=== PATIENT | male | born 1960 | race Caucasian/White ===

== ENCOUNTER 2018-06-13 15:25 | Inpatient (IN) | payer OTHER ==
[~2018-06-13] VITALS: Ht 177.8 cm; Wt 94.3 kg
--- NOTE | 2018-06-13 15:25 | NUR ---
PT BIBA TO ER BED 02
[2018-06-13 15:40] VITALS: BP 146/96
[2018-06-13] MEDS ORDERED: methylPREDNISolone SS 125 MG/2 ML VIAL IVP ONE (15:45)
[2018-06-13] MEDS ORDERED: IPRATROPIUM 0.02% 0.5 MG/2.5 ML NEBU INH ONE (15:45)
[2018-06-13] MEDS ORDERED: LEVOFLOXACIN 500 MG/D5W PREMIX 100 ML IV ONE (15:45)
[2018-06-13] MEDS ORDERED: ALBUTEROL 0.083% 2.5 MG/3 ML NEBU INH ONE (15:45)
--- NOTE | 2018-06-13 15:45 | NUR ---
PT BIB[facility] FOR DIFFUSE ABD PAIN AND FLU LIKE SYMPTOMS X 1 MONTH. PT C/O N/V, "I FEEL HOT", DENIES DYSURIA AND PRIOR FEVERS. PT REPORTS HE HAD COMPLETED DIALYSIS WITH 2 LITER REMOVAL, DENIES SOB, HOWEVER ONLY 88% ON ROOM AIR. RESP EVEN AND UNLABORED, LS-DIMISHED MARGARITA. ABD SOFT, TENDER TO PALPATION. REPORTS NORMAL BM LAST NIGHT. DENIES SOB OR CP. MED HX: HTN, COPD,KIDNEY DISEASE, DM. RX: INSULIN,METFORMIN,LISINOPRIL
--- NOTE | 2018-06-13 15:50 | NUR ---
PT REFUSED ABG AND DR. GARCIA NOTIFIED
--- NOTE | 2018-06-13 16:00 | NUR ---
RT AT BEDSIDE FOR TX, REFUSES ABG'S
[2018-06-13 16:11] LABS: BASOPHILS % (AUTO) 0.9 % (0.0-2.0); HEMATOCRIT 28.8 % (36-52); HEMOGLOBIN 9.3 g/dL (12.0-18.0); LYMPHOCYTES # (AUTO) 0.6 K/uL (2.0-11.5); LYMPHOCYTES % (AUTO) 10.8 % (20.5-51.1); MEAN CORPUSCULAR HEMOGLOBIN 30 pg (27-31); MEAN CORPUSCULAR HGB CONC 32 g/dL (33-37); MEAN CORPUSCULAR VOLUME 94.7 fL (80-94); MONOCYTES # (AUTO) 0.5 K/uL (0.8-1.0); NEUTROPHILS # (AUTO) 4.3 K/uL (1.8-7.7); NEUTROPHILS % (AUTO) 78.3 % (42.2-75.2); PLATELET COUNT (AUTO) 139 K/uL (140-450); RED BLOOD CELL COUNT(AUTO) 3.04 MIL/uL (4.20-6.10); RED CELL DISTRIBUTION WIDTH 20.5 % (11.6-13.7); WHITE BLOOD COUNT (AUTO) 5.5 K/uL (4.8-10.8)
[2018-06-13 16:43] LABS: ALBUMIN 3.6 g/dL (3.4-5.0); ANION GAP 8.1 (8-16); CARBON DIOXIDE 33.3 mmol/L (21-32); POTASSIUM 5.4 mmol/L (3.5-5.1); TOTAL BILIRUBIN 0.4 mg/dL (0.0-1.0)
--- NOTE | 2018-06-13 16:49 | NUR ---
PT OFFERED FLUIDS AND BLANKET, REQUESTING LIGHTS TO BE TURNED OFF
[2018-06-13 16:51] LABS: CREATININE 6.5 mg/dL (0.7-1.3)
[2018-06-13] MEDS ORDERED: SODIUM POLYSTYRENE 15 GM/60 ML UDBTL PO ONE (16:55)
[2018-06-13] MEDS ORDERED: NITROGLYCERIN 2% 1 GM PKT TP ONE (17:05)
[2018-06-13] MEDS ORDERED: FUROSEMIDE 20 MG/2 ML VIAL IVP ONE (17:05)
[2018-06-13] MEDS ORDERED: ASPIRIN 81 MG TAB.CHEW ONE ×2 (17:16→17:28)
[2018-06-13] MEDS ORDERED: ASPIRIN 325 MG TAB ONE (17:23)
--- NOTE | 2018-06-13 17:46 | NUR ---
ADMITTING ORDERS RECEIVED. PT INFORMED PLAN OF CARE.
--- NOTE | 2018-06-13 18:30 | NUR ---
RECEIVED REPORT FROM ED NURSE. PT IN STABLE CONDITION. PT IS AMBULATORY. SKIN IS INTACT. ON DIALYSIS [id number]. 2L REMOVED VIA HD EARLIER TODAY. SHUNT ON LEFT ARM. SATURATING AT 92% ON 2L NC. NO SOB. NO COMPLAINTS OF PAIN OR DISCOMFORT. PT VOICING MD PIYUSH TO PUT IN DIET ORDERS. NITRO PATCH ON RIGHT UPPER CHEST. IV SITE PATENT AND ASYMPTOMATIC. PT IS NOT VERY COOPERATIVE AT THIS TIME. ALL SAFETY PRECAUTIONS IN PLACE, WILL CONTINUE TO MONITOR. Addendum: 06/13/18 at 1853 by Pati Mendoza Meng, RN PT REFUSING REPEAT OF BLOOD PRESSURE READING ON OTHER ARM.
--- NOTE | 2018-06-13 18:49 | NUR ---
Patient will be admitted to care of DR VILLEGAS, DR VANG. Admited toTELE. Will go to room. Belongings list completed. Report to .
--- NOTE | 2018-06-13 19:26 | NUR ---
ENDORSED PLAN OF CARE TO PARTS PROCESSOR RN. PT IN STABLE CONDITION BUT UNCOOPERATIVE.
[2018-06-13 19:27] VITALS: BP 166/108
--- NOTE | 2018-06-13 19:27 | NUR ---
RECEIVED PT REPORT FROM AM NURSE . PT NEW ADMIT FROM ER. TELE PT . AWAKE,ALERT AND ORIENTED X4. WITH SKIN INTACT . ON O22L/NC. NO SOB NOTED. HAS OCCASIONAL PRODUCTIVE COUGH. LUNG SOUNDS DIMINISHED. WITH HL ON THE RT AC#20. CLEAR AND PATENT. PT IN ON HD, WITH ACCESS ON THE LT LOWER ARM AV SHUNT. DRESSING CLEAN AND DRY. PT SAID HE IS HUNGRY. NO DIET ORDER,AND ADMIT ORDERS NOTED WILL CALL MD FOR ORDERS. BED PLACED ON LOWEST POSITION. CALL LIGHT AND URINAL WITHIN EASY REACH. ORIENTED TO HOSPITAL ROUTINES. INSTRUCTED TO CALL FOR ANY ASSISTANCE . VERBALIZED UNDERSTANDING. WILL CONTINUE TO MONITOR.
[2018-06-13] MEDS ORDERED: INSULIN LISPRO SLIDING SCALE 100 UNITS/ML VIAL SUBQ PRN (20:30)
[2018-06-13] MEDS ORDERED: DEXTROSE 50% 50 ML SYR IVP PRN (20:30)
[2018-06-13] MEDS ORDERED: LABETALOL 100 MG/20 ML VIAL IV PRN ×2 (20:30→22:00)
--- NOTE | 2018-06-13 20:30 | NUR ---
PAGED DR. VANG FOR ADMIT ORDERS,DR MOSQUERA SCHOOL AGE LEAD TEACHER. CALLED BACK AND MADE AWARE OF PT BEING IN THE UNIT. WITH ORDERS MADE AND READ BACK.
--- NOTE | 2018-06-13 21:00 | NUR ---
BOTH MRSA NARES AND URINE SPECIMEN COLLECTED FROM PT . SPECIMEN SEND TO LAB.
[2018-06-13] MEDS: BLOOD GLUCOSE MONITORING 1 DEV DEV FS SCH (21:14)
--- NOTE | 2018-06-13 21:14 | NUR ---
BLOOD SUGAR WAS CHECKED RESULT 118. NO INSULIN NEEDED. PROVIDED SOME SANDWICH AND JUICE. WILL CONTINUE TO MONITOR.
[2018-06-13] MEDS ORDERED: LABETALOL 100 MG/20 ML VIAL ONE (21:46)
--- NOTE | 2018-06-13 21:50 | NUR ---
PAGED AGAIN DR. MOSQUERA . CALLED BACK . CLARIFIED WITH HIM ABOUT LABETALOL ORDER DOSAGE PER PROTOCOL FOR TELEMETRY UNIT DOSE. CHANGED DOSE TO 10 MG IVP Q4HRS PRN FOR SBP GREATER 160AND HR GREATER /EQUAL 90. AND NEW ORDER OF AMLODIPINE.
--- NOTE | 2018-06-13 22:25 | NUR ---
BLOOD PRESSURE STILL ELEVATED BP 166/108 ,HR-89. AMLODIPINE 10 MG PO ONCE ORDERED GIVEN. WILL CONTINUE TO MONITOR.
[2018-06-13] MEDS ORDERED: amLODIPine 5 MG TAB PO SCH (22:30)
[2018-06-13 22:39] LABS: APPEARANCE,URINE CLEAR (CLEAR); BILIRUBIN,URINE NEGATIVE (NEGATIVE); BLOOD, URINE 2+ (NEGATIVE); COLOR,URINE YELLOW (YELLOW); LEUKOCYTE ESTERASE ,URINE NEGATIVE (NEGATIVE); NITRITE, URINE NEGATIVE (NEGATIVE); PH,URINE >=9.0 (5.0-9.0); UGLUCOSE NEGATIVE (NEGATIVE)
[2018-06-13 22:50] LABS: RBC,URINE 0-5 (RARE) /HPF (0-5)
[2018-06-13] MEDS ORDERED: guaiFENesin DM 200/20 MG-10 ML 10 ML UDC PO PRN (23:35)
[2018-06-14] VITALS (7 sets, daily range): BP systolic 127–166; BP diastolic 76–115
[2018-06-14] MEDS ORDERED: ALBUTEROL 0.083% 2.5 MG/3 ML NEBU INH PRN (00:20)
--- NOTE | 2018-06-14 01:06 | NUR ---
BP REMAINS ELEVATED AT 166/107. LABETALOL 10MG IV ADMINISTERED. PT IS AWAKE & VERBALLY RESPONSIVE, DENIES ANY DISCOMFORT AT THIS TIME. CALL LIGHT WITHIN REACH. WILL CONTINUE TO MONITOR.
--- NOTE | 2018-06-14 01:33 | NUR ---
C/O ABDOMINAL PAIN 04/21. PAGED DR. MOSQUERA .CALLED BACK WITH ORDERS.
[2018-06-14] MEDS: MORPHINE SULFATE 2 MG/ML SYR IVP PRN ×4 (01:44→23:02)
[2018-06-14] MEDS ORDERED: MORPHINE SULFATE 2 MG/ML SYR ONE (01:47)
--- NOTE | 2018-06-14 02:30 | NUR ---
BP REMAINS ELEVATED AT 165/115, P 83. DR. MOSQUERA (ON-CALL FOR DR. VANG) PAGED & AWAITING CALL BACK. PT IS ALERT & VERBALLY RESPONSIVE. WILL CONTINUE TO MONITOR.
[2018-06-14] MEDS: ZOLPIDEM 5 MG TAB PO PRN (02:41)
--- NOTE | 2018-06-14 02:55 | NUR ---
DR. MOSQUERA CALLED BACK & NOTIFIED OF PERSISTENT HYPERTENSION. MD ORDERED CLONIDINE 0.1MG PO Q4H PRN FOR SBP>160 OR DBP>90. ORDER NOTED & CARRIED OUT. PT NOTIFIED & VERBALIZED UNDERSTANDING.
[2018-06-14] MEDS: cloNIDine 0.1 MG TAB PO PRN ×2 (03:36→12:12)
--- NOTE | 2018-06-14 04:00 | NUR ---
REASSESSED VITAL SIGNS. PT RESTING COMFORTABLY, DENIES ANY PAIN. PT DROWSY D/T AMBIEN. NO SIGNS OF DISTRESS. RESPIRATIONS EVEN & UNLABORED. CALL LIGHT PLACED WITHIN REACH. WILL CONTINUE TO MONITOR.
--- NOTE | 2018-06-14 05:06 | NUR ---
BP REASSESSED. PT IS SLEEPING COMFORTABLY IN BED, AROUSABLE BY VOICE. DENIES ANY DISCOMFORT. NO SIGNS OF DISTRESS. RESPIRATIONS EVEN & UNLABORED. CALL LIGHT WITHIN REACH. WILL CONTINUE TO MONITOR.
[2018-06-14] MEDS: BLOOD GLUCOSE MONITORING 1 DEV DEV FS SCH ×4 (06:45→20:56)
--- NOTE | 2018-06-14 07:12 | NUR ---
PATIENT REFUSED HHN TX OF ALBUTEROL. HR 95 RR 20 SPO2 94 ON 2L/M NASAL CANNULA.
--- NOTE | 2018-06-14 07:25 | NUR ---
REPORT GIVEN TO AM SHIFT NURSE FOR CONTINUITY OF CARE. PT LYING AWAKE IN BED, NO SIGNS OF DISTRESS, RESPIRATIONS EVEN & UNLABORED.
[2018-06-14] MEDS: ALBUTEROL 0.083% 2.5 MG/3 ML NEBU INH SCH ×4 (08:00→19:32)
[2018-06-14] MEDS ORDERED: ASPIRIN 325 MG TABEC PO SCH (09:00)
--- NOTE | 2018-06-14 10:00 | NUR ---
CALLED [facility] [phone] AND SPOKE WITH PIYUSH ADAMS RN READ ALL THE HOME MEDS FROM THE CONTAINER AND NOTIFIED DR VANG AND REVIEWED BY DR VANG AND ILEANA THORNTON TO CONTINUE ALL HOME MEDS
--- NOTE | 2018-06-14 10:00 | NUR ---
Patient signed consent for CT angio, and taken by technition via bed with 40% 02 mask on. Waylon Arshad RN Addendum: 06/14/18 at 2018 by Agency 05 TRI BARTLETT Please disregard information, wrong patient. Waylon Arshad RN
[2018-06-14] MEDS: amLODIPine 5 MG TAB PO SCH (10:06)
[2018-06-14] MEDS ORDERED: GABA300C PO (10:49)
[2018-06-14] MEDS ORDERED: CALC0.5S6 PO (10:49)
[2018-06-14] MEDS ORDERED: TAMS0.4C96 PO (10:49)
[2018-06-14] MEDS ORDERED: [UNRECOGNIZED DRUG - CODE] PO (10:49)
[2018-06-14] MEDS ORDERED: PANT40EC PO (10:49)
[2018-06-14] MEDS ORDERED: VIT1TABL47 PO (10:49)
[2018-06-14] MEDS ORDERED: LIP80 PO (10:49)
[2018-06-14] MEDS ORDERED: ASPI81EC98 PO (10:49)
[2018-06-14] MEDS ORDERED: SEVE800T6 PO (10:49)
[2018-06-14] MEDS ORDERED: DIVA500T1 PO (10:49)
[2018-06-14] MEDS ORDERED: METO50TA99 PO (10:49)
[2018-06-14] MEDS ORDERED: TRAZ100T99 PO (10:49)
[2018-06-14] MEDS ORDERED: LISI-420 PO (10:49)
--- NOTE | 2018-06-14 11:05 | NUR ---
PATIENT SLEEPING AND REFUSED HHN TX. STILL HAS NASAL CANNULA ON AT 3L/M. SPO2 99 HR 92.
--- NOTE | 2018-06-14 12:00 | NUR ---
Patient BS 154, and refused insulin this afternoon, saying she does not take insulin at the alf, and would rather not have her fingersticks done. Waylon Arshad RN Addendum: 06/14/18 at 2020 by Agency 05 TRI RN Disregard above information, patient BS 86, and no insulin necessary. Patient did have a quarter piece of orange, and did eat all of his lunch.' He received morphine earlier, and his pain did resolve. Waylon Arshad RN
[2018-06-14] MEDS ORDERED: DICYCLOMINE HCL 20 MG PO SCH (13:00)
[2018-06-14] MEDS ORDERED: DICYCLOMINE 10 MG CAP PO SCH (13:13)
[2018-06-14 13:44] LABS: BASOPHILS % (AUTO) 0.6 % (0.0-2.0); EOSINOPHILS % (AUTO) 0.2 % (0.0-4.0); HEMATOCRIT 27.9 % (36-52); HEMOGLOBIN 8.8 g/dL (12.0-18.0); LYMPHOCYTES # (AUTO) 0.6 K/uL (2.0-11.5); MEAN CORPUSCULAR HEMOGLOBIN 30 pg (27-31); MEAN CORPUSCULAR HGB CONC 32 g/dL (33-37); MEAN CORPUSCULAR VOLUME 95.5 fL (80-94); MONOCYTES # (AUTO) 0.5 K/uL (0.8-1.0); NEUTROPHILS # (AUTO) 4.3 K/uL (1.8-7.7); PLATELET COUNT (AUTO) 127 K/uL (140-450); RED BLOOD CELL COUNT(AUTO) 2.92 MIL/uL (4.20-6.10); RED CELL DISTRIBUTION WIDTH 20.9 % (11.6-13.7); WHITE BLOOD COUNT (AUTO) 5.5 K/uL (4.8-10.8)
[2018-06-14 13:52] LABS: ANION GAP 14.2 (8-16); CARBON DIOXIDE 29.8 mmol/L (21-32)
[2018-06-14 13:56] LABS: LYMPHOCYTES % (AUTO) 11.5 % (20.5-51.1); MONOCYTES % (AUTO) 9.3 % (1.7-9.3); NEUTROPHILS % (AUTO) 78.4 % (42.2-75.2)
[2018-06-14 14:13] LABS: CREATINE KINASE MB 9.4 ng/mL (0-3.6)
[2018-06-14 14:18] LABS: CREATININE 8.8 mg/dL (0.7-1.3)
--- NOTE | 2018-06-14 14:30 | NUR ---
Patient refused lunch tray passed to her, and nilda have a late chicken noodle soup, and two hard boiled eggs sent up from dietary. She had 90% of food received. Waylon Arshad RN
--- NOTE | 2018-06-14 15:48 | NUR ---
PATIENT AWAKE RECEIVING DIALYSIS AT BEDSIDE. REFUSED HHN TREATMENT SAID THAT HE DOES NOT WANT IT. SAID THAT HE IS NOT HAVING ANY PROBLEMS WITH RESPIRATION. SPO2 97 ON 3L/M HR 69. DECREASED TO 2L/M AND SPO2 MAINTAINED AT 96.
[2018-06-14] MEDS: DICYCLOMINE 10 MG CAP PO SCH ×2 (17:00→20:56)
--- NOTE | 2018-06-14 17:30 | NUR ---
Patient hemodialysis completed, and patient had 2600 off, and vss, and sbp < 130. Waylon Arshad RN
--- NOTE | 2018-06-14 18:00 | NUR ---
Patient BS 151, and she refused insulin again this evening. She received her coumadin 2 mg PO + her glipizide 5 mg PO. Waylon Arshad RN Addendum: 06/14/18 at 2021 by Agency 05 TRI RN Please disregard above note. Patient BS at 1800 was 86, and no insulin necessary per sliding scale per do. Patient did receive morphine 1 mg IVP for co pain across his mid abd, on scale 1-10 = 7. Waylon Arshad RN
[2018-06-14] MEDS: SEVELAMER CARBONATE 800 MG TAB PO SCH (19:10)
--- NOTE | 2018-06-14 19:30 | NUR ---
RECEIVED REPORT FROM AM SHIFT NURSE. PT SITTING UP IN BED, ALERT & AWAKE. NO SIGNS OF DISTRESS. FALL PRECAUTIONS IN PLACE. CALL LIGHT WITHIN REACH. WILL CONTINUE TO MONITOR.
--- NOTE | 2018-06-14 20:55 | NUR ---
DUE MEDS GIVEN AT THIS TIME. PT SITTING UP IN BED, WATCHING TV. NO SIGNS OF DISTRESS. CALL LIGHT WITHIN REACH. FALL PRECAUTIONS IN PLACE. WILL CONTINUE TO MONITOR.
[2018-06-14] MEDS: traZODone 50 MG TAB PO SCH (20:56)
[2018-06-14] MEDS: DIVALPROEX 500 MG TABER PO SCH (20:57)
[2018-06-14] MEDS ORDERED: NON-FORMULARY ITEM (Trazodone HCl 100 MG) PO SCH (21:00)
--- NOTE | 2018-06-14 23:02 | NUR ---
MORPHINE ADMINISTERED FOR C/O PAIN. PT LYING COMFORTABLY IN BED, ALERT & AWAKE, ABLE TO VERBALIZED NEEDS. NO SIGNS OF DISTRESS. CALL LIGHT WITHIN REACH. INSTRUCTED PT TO USE CALL BUTTON IF BRP NEEDED. PT VERBALIZED AGREEMENT. FALL PRECAUTIONS IN PLACE.
[2018-06-15] VITALS: BP 127/91
--- NOTE | 2018-06-15 00:02 | NUR ---
PAIN REASSESSMENT COMPLETED. PT LYING COMFORTABLY IN BED, NO SIGNS OF DISTRESS, RESPIRATIONS EVEN & UNLABORED. CALL LIGHT WITHIN REACH. WILL CONTINUE TO MONITOR.
[2018-06-15] MEDS: ZOLPIDEM 5 MG TAB PO PRN (02:55)
--- NOTE | 2018-06-15 02:55 | NUR ---
PT REQUESTING FOR SLEEPING PILL. EXPLAINED TO PT THAT IT IS NOW EARLY AM, HE MAY STAY ASLEEP & MISS BREAKFAST IF MED IS GIVEN NOW. PT INSIST ON TAKING THE MED. AMBIEN ADMINISTERED AT THIS TIME. PT DENIES ANY PAIN, NO SIGNS OF DISTRESS. CALL LIGHT WITHIN REACH, FALL PRECAUTIONS IN PLACE.
[2018-06-15 04:02] VITALS: BP 131/92
--- NOTE | 2018-06-15 04:45 | NUR ---
PT SLEEPING COMFORTABLY, RESPIRATIONS EVEN & UNLABORED. FALL PRECAUTIONS IN PLACE. CALL LIGHT WITHIN REACH.
[2018-06-15] MEDS: MORPHINE SULFATE 2 MG/ML SYR IVP PRN ×2 (05:23→11:17)
[2018-06-15] MEDS: BLOOD GLUCOSE MONITORING 1 DEV DEV FS SCH ×4 (06:25→20:34)
--- NOTE | 2018-06-15 07:15 | NUR ---
REPORT GIVEN TO AM SHIFT NURSE FOR CONTINUITY OF CARE. PT SITTING ON BED, ALERT & VERBALLY RESPONSIVE. NO SIGNS OF DISTRESS.
--- NOTE | 2018-06-15 07:16 | NUR ---
RECEIVED BEDSIDE REPORT FROM STUDENT LIAISON OFFICER NURSE. PATIENT IS AWAKE, ALERT AND ORIENTEDX4. NO SIGNS OF DISTRESS ON 2L NC. PATIENT IS SITTING ON BED STATING HES HUNGRY AND I TOLD HIM BREAKFAST IS COMING SOON. HE VERBALIZED UNDERSTANDING. HE IS AMBULATORY. SKIN IS INTACT. TELE MONITOR IN PLACE. L FA AV SHUNT. NO B/P OR VENIPUNCTURE ON L ARM SIGNS ARE POSTED. HE HAD DIALYSIS YESTERDAY W 2400 OUT. R AC 20 IS SALINE LOCKED, CLEAN, DRY AND INTACT. FLUID RESTRICTIONS ON 1500ML/HR, SIGNS ARE POSTED. PER STUDENT LIAISON OFFICER HE IS NON COMPLAINT W FLUID RESTRICTIONS. PATIENT EDUCATED THE IMPORTANCE AND VERBALIZED UNDERSTANDING, PATIENT STILL NON COMPLIANT. BED IN LOW POSITION. CALL LIGHT WITHIN REACH. WILL CONTINUE TO MONITOR
[2018-06-15 08:00] VITALS: BP 136/92
[2018-06-15] MEDS ORDERED: NON-FORMULARY ITEM (Aspirin (Aspir 81) 81 MG) PO SCH (08:00)
[2018-06-15] MEDS: ALBUTEROL 0.083% 2.5 MG/3 ML NEBU INH SCH ×4 (08:00→19:34)
[2018-06-15] MEDS: METOPROLOL 50 MG TAB PO SCH (08:33)
[2018-06-15] MEDS: SEVELAMER CARBONATE 800 MG TAB PO SCH ×3 (08:34→16:26)
[2018-06-15] MEDS: amLODIPine 5 MG TAB PO SCH (08:34)
[2018-06-15] MEDS: TAMSULOSIN 0.4 MG CAP PO SCH (08:34)
[2018-06-15] MEDS: ECOTRIN 81 MG TABEC PO SCH (08:34)
[2018-06-15] MEDS: ATORVASTATIN 80 MG TAB PO SCH (08:34)
[2018-06-15] MEDS: CALCITRIOL 0.25 MCG CAPLF PO SCH (08:34)
[2018-06-15] MEDS: LISINOPRIL 20 MG TAB PO SCH (08:35)
[2018-06-15] MEDS: PANTOPRAZOLE 40 MG TABEC PO SCH (08:35)
[2018-06-15] MEDS: VIT-B COMP/VIT-C/FOLIC ACID 1 TAB PO SCH (08:35)
[2018-06-15] MEDS: DICYCLOMINE 10 MG CAP PO SCH ×4 (08:38→20:33)
[2018-06-15] MEDS: DIVALPROEX 500 MG TABER PO SCH ×2 (08:38→20:33)
[2018-06-15] MEDS: GABAPENTIN 300 MG CAP PO SCH (08:38)
--- NOTE | 2018-06-15 08:51 | NUR ---
ADMINISTERED MEDS. PATIENT TOLERATED WELL. PATIENT PLACED ON FALL RISK PROTOCOL HE REFUSED YELLOW SOCKS. EDUCATED HIM ON THE IMPORTANCE AND HE STILL REFUSED. BED IN LOW POSITION. CALL LIGHT WITHIN REACH, EXTRA WARM BLANKET GIVEN. WILL CONTINUE TO MONITOR
[2018-06-15] MEDS ORDERED: VIT B CMPLX PO SCH (09:00)
[2018-06-15] MEDS ORDERED: CLINICAL MONITORING MC PRN (09:00)
[2018-06-15] MEDS ORDERED: BIOTIN PO SCH (09:00)
[2018-06-15] MEDS ORDERED: CLINICAL MONITORING MC SCH (09:00)
[2018-06-15] MEDS ORDERED: METOPROLOL TARTRATE 50 MG PO SCH (09:00)
[2018-06-15] MEDS ORDERED: [UNRECOGNIZED DRUG - OTHER] PO SCH (09:00)
--- NOTE | 2018-06-15 09:00 | NUR ---
PATIENT REFUSED RT TREATMENT. HE SAID HE IS OK RIGHT NOW. PATIENT JUST WANTS TO SLEEP
--- NOTE | 2018-06-15 09:00 | NUR ---
PATIENT ASSESSMENT COMPLETED LOC ASLEEP EASILY AWAKENS WHEN NAME CALLED PATIENT REFUSES HHN THERAPY AND RESPIRATORY DRUG AT THIS TIME PATIENT STATES "NOT RIGHT NOW WILL TAKE IT NEXT TIME (1100)" NO SOB NOTED
--- NOTE | 2018-06-15 11:05 | NUR ---
PATIENT HAS BEEN SCREENED AND CATEGORIZED MODERATE NUTRITION RISK. PATIENT WILL BE SEEN WITHIN 3-5 DAYS OF ADMISSION. 06/16/18 06/18/18 BUDDY BEDOYA MBA, RD
--- NOTE | 2018-06-15 11:20 | NUR ---
ADMINISTERED PRN PAIN MEDS. PATIENT TOLERATED WELL. IV IS CLEAN, DRY AND INTACT. NO SIGNS OF DISTRESS. ECHO ABOUT TO START FOR THE PATIENT, TECH AT BEDSIDE. WILL CONTINUE TO MONITOR
[2018-06-15 12:00] VITALS: BP 116/81
--- NOTE | 2018-06-15 12:37 | NUR ---
ADMINISTERED MEDS. PATIENT TOLERATED WELL. NO SIGNS OF DISTRESS. HE SAID HE DOES NOT EAT PORK AND HE GOT PORK, CALLED [facility] FOR A SUBSTITUTE AND LEFT A MESSAGE. WILL CONTINUE TO MONITOR THE PATIENT.
--- NOTE | 2018-06-15 13:28 | NUR ---
PATIENT IN BED EATING A TURKEY SANDWICH. NO SIGNS OF DISTRESS. WILL CONTINUE TO MONITOR THE PATIENT
--- NOTE | 2018-06-15 14:39 | NUR ---
PATIENT IS SLEEPING. NO SIGNS OF DISTRESS ON 2L NC. BED IN LOW POSITION. CALL LIGHT WITHIN REACH. WILL CONTINUE TO MONITOR
[2018-06-15 16:00] VITALS: BP 96/63
[2018-06-15] MEDS ORDERED: LEVOFLOXACIN 500 MG/D5W PREMIX 100 ML IV SCH (16:00)
[2018-06-15] MEDS ORDERED: LEVOFLOXACIN 500 MG TAB PO SCH (16:00)
--- NOTE | 2018-06-15 16:25 | NUR ---
SATURATION 88% ON SUPPLEMENTAL OXYGEN AT 2 LPM VIA NC POST HHN THERAPY INCREASED FIO2 TO 3 LPM LUIS/RN AT BEDSIDE AND AWARE
--- NOTE | 2018-06-15 16:37 | NUR ---
ADMINISTERED MEDS. PATIENT TOLERATED WELL. BED IN LOW POSITION. CALL LIGHT WITHIN REACH. PATIENT UP TO 3L NC NOW. WILL CONTINUE TO MONITOR
[2018-06-15 17:04] LABS: BASOPHILS # (AUTO) 0.1 K/uL (0.00-0.22); BASOPHILS % (AUTO) 2.2 % (0.0-2.0); EOSINOPHILS # (AUTO) 0.4 K/uL (0-0.4); EOSINOPHILS % (AUTO) 7.4 % (0.0-4.0); HEMATOCRIT 29.9 % (36-52); HEMOGLOBIN 9.5 g/dL (12.0-18.0); LYMPHOCYTES # (AUTO) 1.2 K/uL (2.0-11.5); MEAN CORPUSCULAR HEMOGLOBIN 31 pg (27-31); MEAN CORPUSCULAR HGB CONC 32 g/dL (33-37); MEAN CORPUSCULAR VOLUME 96.5 fL (80-94); MONOCYTES # (AUTO) 0.6 K/uL (0.8-1.0); MONOCYTES % (AUTO) 12.1 % (1.7-9.3); NEUTROPHILS # (AUTO) 2.8 K/uL (1.8-7.7); NEUTROPHILS % (AUTO) 55.3 % (42.2-75.2); PLATELET COUNT (AUTO) 136 K/uL (140-450); WHITE BLOOD COUNT (AUTO) 5.1 K/uL (4.8-10.8)
[2018-06-15 17:46] LABS: CARBON DIOXIDE 29.6 mmol/L (21-32)
[2018-06-15 17:51] LABS: ANION GAP 11.8 (8-16); CREATININE 7.9 mg/dL (0.7-1.3); POTASSIUM 5.4 mmol/L (3.5-5.1)
[2018-06-15 17:53] LABS: PHOSPHORUS 4.9 mg/dL (2.5-4.9)
--- NOTE | 2018-06-15 18:11 | NUR ---
PATIENT IS EATING. NO SIGNS OF DISTRESS. WILL CONTINUE TO MONITOR THE PATIENT
--- NOTE | 2018-06-15 19:05 | NUR ---
GAVE BEDSIDE REPORT TO POSTER NURSE. PATIENT ENDORSED IN STABLE CONDITION. DIALYSIS NURSE AT BEDSIDE GOING TO START DIALYSIS
--- NOTE | 2018-06-15 19:10 | NUR ---
RECEIVED PATIENT ON BED HAVING DIALYSIS. DIALYSIS NURSE AT BEDSIDE. FALL PRECAUTION APPLIED. DISCUSS PLAN OF CARE AND VERBALIZED UNDERSTANDING. CALL LIGHT WITHIN REACH. WILL CONTINUE TO MONITOR.
--- NOTE | 2018-06-15 19:30 | NUR ---
PATIENT REFUSED HIS BREATHING TREATMENT. PT HAVING DIALYSIS. PT WILL CALL IF HE WANTS ONE
[2018-06-15] MEDS ORDERED: ONDANSETRON 4 MG/2 ML VIAL IVP PRN (19:55)
[2018-06-15 20:00] VITALS: BP 92/61
[2018-06-15] MEDS: traZODone 50 MG TAB PO SCH (20:33)
--- NOTE | 2018-06-15 21:05 | NUR ---
SCHEDULE MEDICATION GIVEN AND TOLERATED WELL. BS TAKEN AND RECORDED NO COVERAGE. ON GOING DIALYSIS PATIENT TOLERATED WELL. NO S/S OF DISTRESS NOTED. WILL CONTINUE TO MONITOR.
--- NOTE | 2018-06-15 21:45 | NUR ---
DIALYSIS DONE WITH 1600 OUTPUT PER DIALYSIS NURSE. NO S/S OF DISTRESS NOTED. WILL CONTINUE TO MONITOR.
[2018-06-16] VITALS: BP 100/76
--- NOTE | 2018-06-16 00:05 | NUR ---
V/S TAKEN AND RECORDED. NO S/S OF DISTRESS NOTED. ALL NEEDS ATTENDED. CALL LIGHT WITHIN REACH. WILL CONTINUE TO MONITOR.
--- NOTE | 2018-06-16 03:05 | NUR ---
SEEN PATIENT RESTING ON BED IN COMFORTABLE POSITION. FALL PRECAUTION APPLIED. NO S/S OF DISTRESS NOTED. CALL LIGHT WITHIN REACH. ALL NEEDS ATTENDED.
[2018-06-16 04:00] VITALS: BP 136/81
[2018-06-16] MEDS: BLOOD GLUCOSE MONITORING 1 DEV DEV FS SCH ×2 (06:33→12:23)
[2018-06-16] MEDS: ALBUTEROL 0.083% 2.5 MG/3 ML NEBU INH SCH ×2 (06:58→11:48)
--- NOTE | 2018-06-16 07:15 | NUR ---
ENDORSEMENT GIVEN TO AM SHIFT NURSE AT BEDSIDE FOR CONTINUITY OF CARE. PATIENT IN STABLE CONDITION.
--- NOTE | 2018-06-16 07:16 | NUR ---
RECEIVED BEDSIDE REPORT FROM CERAMIC PAINTER NURSE. PATIENT IS SLEEPING. NO SIGNS OF DISTRESS ON 3L NC. R AC 20G SALINE LOCK. CLEAN, DRY AND INTACT. NO B/P ON L ARM, SIGNS POSTED ARM BAND PRESENT. FLUID RESTRICTIONS, SIGN POSTED. AMBULATES W ASSISTANCE. SKIN IS INTACT. BED IN LOW POSITION. CALL LIGHT WITHIN REACH, WILL CONTINUE TO MONITOR. FALL RISK PROTOCOL IN PLACE
[2018-06-16 07:54] LABS: BASOPHILS # (AUTO) 0.1 K/uL (0.00-0.22); BASOPHILS % (AUTO) 1.1 % (0.0-2.0); EOSINOPHILS # (AUTO) 0.5 K/uL (0-0.4); EOSINOPHILS % (AUTO) 9.9 % (0.0-4.0); HEMATOCRIT 29.7 % (36-52); HEMOGLOBIN 9.6 g/dL (12.0-18.0); LYMPHOCYTES # (AUTO) 0.8 K/uL (2.0-11.5); LYMPHOCYTES % (AUTO) 16.2 % (20.5-51.1); MEAN CORPUSCULAR HEMOGLOBIN 31 pg (27-31); MEAN CORPUSCULAR HGB CONC 32 g/dL (33-37); MEAN CORPUSCULAR VOLUME 96.5 fL (80-94); MONOCYTES # (AUTO) 0.7 K/uL (0.8-1.0); MONOCYTES % (AUTO) 14.1 % (1.7-9.3); NEUTROPHILS # (AUTO) 3.1 K/uL (1.8-7.7); NEUTROPHILS % (AUTO) 58.7 % (42.2-75.2); PLATELET COUNT (AUTO) 152 K/uL (140-450); RED BLOOD CELL COUNT(AUTO) 3.07 MIL/uL (4.20-6.10); RED CELL DISTRIBUTION WIDTH 21.6 % (11.6-13.7); WHITE BLOOD COUNT (AUTO) 5.2 K/uL (4.8-10.8)
[2018-06-16 08:00] VITALS: BP 129/89
[2018-06-16 08:58] LABS: ANION GAP 14.6 (8-16); POTASSIUM 4.6 mmol/L (3.5-5.1)
[2018-06-16 09:01] LABS: CREATININE 6.2 mg/dL (0.7-1.3)
[2018-06-16] MEDS: CALCITRIOL 0.25 MCG CAPLF PO SCH (09:15)
[2018-06-16] MEDS: amLODIPine 5 MG TAB PO SCH (09:16)
[2018-06-16] MEDS: PANTOPRAZOLE 40 MG TABEC PO SCH (09:17)
[2018-06-16] MEDS: SEVELAMER CARBONATE 800 MG TAB PO SCH ×2 (09:17→12:35)
[2018-06-16] MEDS: DIVALPROEX 500 MG TABER PO SCH (09:18)
[2018-06-16] MEDS: LISINOPRIL 20 MG TAB PO SCH (09:18)
[2018-06-16] MEDS: ATORVASTATIN 80 MG TAB PO SCH (09:18)
[2018-06-16] MEDS: GABAPENTIN 300 MG CAP PO SCH (09:18)
[2018-06-16] MEDS: TAMSULOSIN 0.4 MG CAP PO SCH (09:19)
[2018-06-16] MEDS: METOPROLOL 50 MG TAB PO SCH (09:19)
[2018-06-16] MEDS: ECOTRIN 81 MG TABEC PO SCH (09:19)
[2018-06-16] MEDS: DICYCLOMINE 10 MG CAP PO SCH ×2 (09:20→12:35)
[2018-06-16] MEDS: VIT-B COMP/VIT-C/FOLIC ACID 1 TAB PO SCH (09:20)
--- NOTE | 2018-06-16 09:30 | NUR ---
ADMINISTERED MEDS. PATIENT TOLERATED WELL. BED IN LOW POSITION. CALL LIGHT WITHIN REACH. WILL CONTINUE TO MONITOR THE PATIENT
--- NOTE | 2018-06-16 10:36 | NUR ---
CALLED PT'S BOARD AND CARE ([phone]) AND SPOKE WITH MARGARET OLIVAS PT'S ROOMMATE REGARDING PT'S D/C BACK TO THE [facility]. MARGARET STATED THAT HE WILL LET THE EXECUTIVE CHEF (CHARLES) KNOW SOON SHE GETS THERE. GAVE [facility] CONTACT NUMBER TO CALL BACK. LUIS-RN ASSIGNED NOTIFIED TO MAKE A FOLLOW UP.
--- NOTE | 2018-06-16 11:00 | NUR ---
PATIENT IS SLEEPING. NO SIGNS OF DISTRESS. WILL CONTINUE TO MONITOR THE PATIENT.
[2018-06-16 12:00] VITALS: BP 103/73
--- NOTE | 2018-06-16 12:36 | NUR ---
ADMINISTERED MEDS. PATIENT TOLERATED WELL. EATING LUNCH AT THIS TIME. TOLD HIM I TRIED CALLING BOARD AND CARE AND NO ANSWER. HE SAID "THEY WONT ANSWER, THEY DONT CARE" WILL CONTINUE TO MONITOR THE PATIENT
--- NOTE | 2018-06-16 13:40 | NUR ---
SPOKE TO CHARLES THE COMPENSATION ADMINISTRATOR OF BOARD AND CARE. CALLED HER AT [phone]. SHE SAID SHE IS NOT ABLE TO [employer] MECHANICAL TECHNICIAN THE PATIENT. WILL CALL INSTALLATION AND SERVICE TECHNICIAN
--- NOTE | 2018-06-16 14:50 | NUR ---
CALLED CHARLES TEL#: [phone] (COUNTER INTELLIGENCE AGENT) OF PT'S ROOM AND BOARD AND CLARIFIED THEIR CORRECT ADDRESS. CHARLES STATED THAT PT IS ON 5 LITERS OF OXYGEN OVER AT THE ROOM AND BOARD. VALERIA NOTIFIED.
--- NOTE | 2018-06-16 15:00 | NUR ---
PATIENT IS DRESSING UP AND GETTING HIS THINGS TOGETHER FOR DISCHARGE. WILL WORK ON DISCHARGE PAPERWORK
--- NOTE | 2018-06-16 15:16 | NUR ---
CALLED CHARLES FROM [facility]OM [facility] BOARD AND VERIFIED ADDRESS. FAXED [facility] TRANSPORT REQUEST FORM TO [phone]. I INFORMED BRIAN THAT I WILL SET UP TRANSPORT WITH [facility]. PATIENT WILL NEED O2. SET UP TRANSPORT FOR 4P.M. W/C WITH O2 AT 3L. INFORMED LUIS BARTLETT.
--- NOTE | 2018-06-16 15:21 | NUR ---
DAVID Vines called, stated that pt will be picked up by [facility] (wheelchair) with 02 at 4pm today. Daphnie_TRI made aware.
--- NOTE | 2018-06-16 15:42 | NUR ---
FAXED INITIAL REVIEW ADMISSION CHART REVIEW DONE. FAXED ER REPORT, H&P, CONSULT AND PROGRESS NOTES TO [facility] [phone] PHONE MELISSA [phone]
--- NOTE | 2018-06-16 16:20 | NUR ---
EDUCATED PATIENT ON DISEASE, ABN S/SX, FOLLOW UP W DIALYSIS TOMORROW AND PCP 3-5 DAYS, EDUCATED ON MEDS AND GAVE PRESCRIPTIONS, REMOVED IV, IV TIP IS INTACT. ID BANDS ARE REMOVED. PATIENT SIGNED ALL PAPERWORK. WILL AWAIT [facility] TRANSPORT. PATIENT CURRENTLY EATING A [employer]
--- NOTE | 2018-06-16 16:35 | NUR ---
PATIENT LEFT IN STABLE CONDITION VIA WHEELCHAIR Cristina BUCK. CALLED CHARLES THE DRESSER TENDER OF BOARD AND CARE AND SHE SAID THAT THE DIALYSIS CENTER DOES TRANSPORT FOR HIM FOR DIALYSIS DAYS AND SHE SAID SHE WILL TALK TO THE RATE INSERTER ABOUT THE DIALYSIS DAYS.
== END 2018-06-16 16:35 | disposition home or self-care (01) | DRG 720 ==
LOC: MED 15:25 → MTU 17:56
PROVIDERS: ADMIT Internal Medicine; ATTEND Internal Medicine
PROC: 5A1D70Z Performance of Urinary Filtration, Intermittent, Less than 6 Hours Per Day (ICD-10-PCS; principal; 2018-06-14)
PROC: 5A1D70Z Performance of Urinary Filtration, Intermittent, Less than 6 Hours Per Day (ICD-10-PCS; 2018-06-14)
DX: A41.9 Sepsis, unspecified organism (principal); I21.A1 Myocardial infarction type 2; J96.00 Acute respiratory failure, unspecified whether with hypoxia or hypercapnia; I13.2 Hypertensive heart and chronic kidney disease with heart failure and with stage 5 chronic kidney disease, or end stage renal disease; J18.9 Pneumonia, unspecified organism; E11.22 Type 2 diabetes mellitus with diabetic chronic kidney disease; N18.6 End stage renal disease; I50.33 Acute on chronic diastolic (congestive) heart failure; E87.5 Hyperkalemia; J44.0 Chronic obstructive pulmonary disease with (acute) lower respiratory infection; J44.1 Chronic obstructive pulmonary disease with (acute) exacerbation; D63.1 Anemia in chronic kidney disease; Z99.2 Dependence on renal dialysis; Z87.891 Personal history of nicotine dependence; Z91.19 Patient's noncompliance with other medical treatment and regimen
CPT/HCPCS: 36415; 71045; 80048; 80053; 81001; 82550; 82553; 82948; 83605; 83880; 84100; 84484; 85025; 85610; 85730; 87040; 87081; 87086; 87205; 93005; 94640; 96374; 96375; 99291; J1815; J1940; J1956; J2270; J2405; J2930; J3490; J7613; J7644; Q0092

== ENCOUNTER 2018-09-15 10:12 | Inpatient (IN) | payer OTHER ==
[~2018-09-15] VITALS: Ht 177.8 cm; Wt 87.5 kg
[~2018-09-15 10:12] MED LIST: ASPI81EC98 PO; CALC0.5S6 PO; DIVA500T1 PO; GABA300C PO; LIP80 PO; LISI-420 PO; METO50TA99 PO; PANT40EC PO; SEVE800T6 PO; TAMS0.4C96 PO; TRAZ100T99 PO; VIT1TABL47 PO; [UNRECOGNIZED DRUG - CODE] PO
[2018-09-15 10:15] VITALS: BP 139/88
[2018-09-15] MEDS ORDERED: NITROGLYCERIN 2% 1 GM PKT TP ONE (10:30)
[2018-09-15] MEDS ORDERED: FUROSEMIDE 40 MG/4 ML VIAL IVP ONE (10:30)
[2018-09-15] MEDS ORDERED: MORPHINE SULFATE 2 MG/ML SYR IVP ONE (10:30)
[2018-09-15] MEDS ORDERED: ASPIRIN 81 MG TAB.CHEW PO ONE (10:30)
[2018-09-15 11:41] LABS: BASOPHILS # (AUTO) 0.1 K/uL (0.00-0.22); BASOPHILS % (AUTO) 1.3 % (0.0-2.0); EOSINOPHILS # (AUTO) 0.6 K/uL (0-0.4); EOSINOPHILS % (AUTO) 11.2 % (0.0-4.0); HEMATOCRIT 27.8 % (36-52); HEMOGLOBIN 8.7 g/dL (12.0-18.0); LYMPHOCYTES # (AUTO) 0.8 K/uL (2.0-11.5); LYMPHOCYTES % (AUTO) 14.2 % (20.5-51.1); MEAN CORPUSCULAR HEMOGLOBIN 32 pg (27-31); MEAN CORPUSCULAR HGB CONC 31 g/dL (33-37); MEAN CORPUSCULAR VOLUME 101.5 fL (80-94); MONOCYTES % (AUTO) 18.9 % (1.7-9.3); NEUTROPHILS % (AUTO) 54.4 % (42.2-75.2); PLATELET COUNT (AUTO) 141 K/uL (140-450); RED BLOOD CELL COUNT(AUTO) 2.74 MIL/uL (4.20-6.10); RED CELL DISTRIBUTION WIDTH 18.1 % (11.6-13.7); WHITE BLOOD COUNT (AUTO) 5.5 K/uL (4.8-10.8)
[2018-09-15 11:51] LABS: PROTHROMBIN TIME 10.5 secs (10.8-13.4)
[2018-09-15 11:55] LABS: ALBUMIN 2.8 g/dL (3.4-5.0); ANION GAP 22.1 (8-16); CARBON DIOXIDE 23.1 mmol/L (21-32); TOTAL BILIRUBIN 0.6 mg/dL (0.0-1.0)
[2018-09-15 11:56] LABS: POTASSIUM 6.2 mmol/L (3.5-5.1)
[2018-09-15 11:57] LABS: CREATININE 16.7 mg/dL (0.7-1.3)
[2018-09-15] MEDS ORDERED: CALCIUM GLUCONATE 10% 1000 MG/10 ML VIAL IVP ONE (12:20)
[2018-09-15] MEDS ORDERED: SODIUM POLYSTYRENE 15 GM/60 ML UDBTL PR ONE (12:20)
[2018-09-15] MEDS ORDERED: ALBUTEROL 0.083% 2.5 MG/3 ML NEBU INH ONE (12:20)
[2018-09-15] MEDS ORDERED: INSULIN REGULAR, HUMAN 100 UNIT/ML VIAL IVP ONE (12:20)
[2018-09-15] MEDS ORDERED: DEXTROSE 50% 50 ML SYR IVP ONE (12:20)
[2018-09-15] MEDS ORDERED: SODIUM BICARBONATE 8.4% PFS 50 MEQ/50 ML SYR IVP ONE (12:20)
[2018-09-15] MEDS ORDERED: INSULIN LISPRO SLIDING SCALE 100 UNITS/ML VIAL SUBQ PRN (13:10)
[2018-09-15] MEDS ORDERED: ACETAMINOPHEN 325 MG TAB PO PRN (13:10)
[2018-09-15] MEDS ORDERED: ALBUTEROL 0.083% 2.5 MG/3 ML NEBU IH PRN (13:10)
[2018-09-15 13:46] VITALS: BP 143/97
[2018-09-15] MEDS: LEVOFLOXACIN 250 MG/D5 PREMIX 50 ML IV SCH (15:53)
[2018-09-15 16:00] VITALS: BP 152/92
[2018-09-15] MEDS: SEVELAMER CARBONATE 800 MG TAB PO SCH (17:00)
[2018-09-15] MEDS: IPRATROPIUM 0.02% 0.5 MG/2.5 ML NEBU INH SCH (18:59)
[2018-09-15] MEDS: ALBUTEROL 0.083% 2.5 MG/3 ML NEBU IH SCH (18:59)
[2018-09-15] MEDS: MORPHINE SULFATE 2 MG/ML SYR IVP PRN (19:32)
[2018-09-15 19:58] LABS: CREATINE KINASE MB 12.2 ng/mL (0-3.6)
[2018-09-15 20:00] VITALS: BP 153/104
[2018-09-15] MEDS ORDERED: hydrALAZINE 25 MG TAB PO PRN (20:35)
[2018-09-15] MEDS ORDERED: NON-FORMULARY ITEM (Trazodone HCl 100 MG) PO SCH (21:00)
[2018-09-15] MEDS: traZODone 50 MG TAB PO SCH (21:51)
[2018-09-15] MEDS: FUROSEMIDE 40 MG/4 ML VIAL IVP SCH (21:51)
[2018-09-15] MEDS: DIVALPROEX 500 MG TABEC PO SCH (21:51)
[2018-09-16] VITALS: BP 127/88
[2018-09-16] MEDS: IPRATROPIUM 0.02% 0.5 MG/2.5 ML NEBU INH SCH ×4 (00:22→20:12)
[2018-09-16] MEDS: ALBUTEROL 0.083% 2.5 MG/3 ML NEBU IH SCH ×4 (00:22→20:12)
[2018-09-16 04:00] VITALS: BP 130/80
[2018-09-16] MEDS: guaiFENesin DM 200/20 MG-10 ML 10 ML UDC PO PRN ×3 (04:42→21:40)
[2018-09-16] MEDS: FUROSEMIDE 40 MG/4 ML VIAL IVP SCH ×3 (05:00→21:38)
[2018-09-16] MEDS: PANTOPRAZOLE 40 MG TABEC PO SCH (06:44)
[2018-09-16 08:00] VITALS: BP 125/85
[2018-09-16] MEDS ORDERED: BIOTIN PO SCH (09:00)
[2018-09-16] MEDS ORDERED: [UNRECOGNIZED DRUG - OTHER] PO SCH (09:00)
[2018-09-16] MEDS ORDERED: METOPROLOL TARTRATE 50 MG PO SCH (09:00)
[2018-09-16] MEDS ORDERED: VIT B CMPLX PO SCH (09:00)
[2018-09-16] MEDS: TAMSULOSIN 0.4 MG CAP PO SCH (09:14)
[2018-09-16] MEDS: SEVELAMER CARBONATE 800 MG TAB PO SCH ×3 (09:14→18:00)
[2018-09-16] MEDS: METOPROLOL SUCCINATE 50 MG TABER PO SCH (09:15)
[2018-09-16] MEDS: DIVALPROEX 500 MG TABEC PO SCH ×2 (09:15→21:38)
[2018-09-16] MEDS: CALCITRIOL 0.25 MCG CAPLF PO SCH (09:15)
[2018-09-16] MEDS: ASPIRIN 81 MG TAB.CHEW PO SCH (09:15)
[2018-09-16] MEDS: LISINOPRIL 20 MG TAB PO SCH (09:16)
[2018-09-16] MEDS: ATORVASTATIN 80 MG TAB PO SCH (09:17)
[2018-09-16] MEDS: GABAPENTIN 300 MG CAP PO SCH (09:17)
[2018-09-16] MEDS: VIT-B COMP/VIT-C/FOLIC ACID 1 TAB PO SCH (09:17)
[2018-09-16 12:00] VITALS: BP 104/67
[2018-09-16 12:53] LABS: CREATINE KINASE MB 8.3 ng/mL (0-3.6)
[2018-09-16 16:00] VITALS: BP 125/85
[2018-09-16 20:00] VITALS: BP 105/82
[2018-09-16] MEDS: traZODone 50 MG TAB PO SCH (21:38)
[2018-09-17] VITALS: BP 105/56
[2018-09-17] MEDS: ALBUTEROL 0.083% 2.5 MG/3 ML NEBU IH SCH ×4 (01:46→19:01)
[2018-09-17] MEDS: IPRATROPIUM 0.02% 0.5 MG/2.5 ML NEBU INH SCH ×4 (01:46→19:01)
[2018-09-17 04:00] VITALS: BP 106/57
[2018-09-17] MEDS: FUROSEMIDE 40 MG/4 ML VIAL IVP SCH ×3 (05:00→20:47)
[2018-09-17] MEDS: PANTOPRAZOLE 40 MG TABEC PO SCH (05:47)
[2018-09-17] MEDS: MORPHINE SULFATE 2 MG/ML SYR IVP PRN ×2 (06:11→23:07)
[2018-09-17 08:00] VITALS: BP 140/80
[2018-09-17 08:05] LABS: BASOPHILS # (AUTO) 0.1 K/uL (0.00-0.22); BASOPHILS % (AUTO) 1.3 % (0.0-2.0); EOSINOPHILS # (AUTO) 0.8 K/uL (0-0.4); EOSINOPHILS % (AUTO) 18.7 % (0.0-4.0); HEMATOCRIT 33.2 % (36-52); HEMOGLOBIN 10.3 g/dL (12.0-18.0); LYMPHOCYTES % (AUTO) 22.9 % (20.5-51.1); MEAN CORPUSCULAR HEMOGLOBIN 32 pg (27-31); MEAN CORPUSCULAR HGB CONC 31 g/dL (33-37); MEAN CORPUSCULAR VOLUME 101.9 fL (80-94); MONOCYTES % (AUTO) 22.8 % (1.7-9.3); NEUTROPHILS # (AUTO) 1.4 K/uL (1.8-7.7); NEUTROPHILS % (AUTO) 34.3 % (42.2-75.2); PLATELET COUNT (AUTO) 135 K/uL (140-450); RED BLOOD CELL COUNT(AUTO) 3.26 MIL/uL (4.20-6.10); RED CELL DISTRIBUTION WIDTH 18.2 % (11.6-13.7); WHITE BLOOD COUNT (AUTO) 4.2 K/uL (4.8-10.8)
[2018-09-17] MEDS: CALCITRIOL 0.25 MCG CAPLF PO SCH (08:12)
[2018-09-17] MEDS: SEVELAMER CARBONATE 800 MG TAB PO SCH ×3 (08:12→18:10)
[2018-09-17] MEDS: TAMSULOSIN 0.4 MG CAP PO SCH (08:12)
[2018-09-17] MEDS: guaiFENesin DM 200/20 MG-10 ML 10 ML UDC PO PRN ×2 (08:12→19:05)
[2018-09-17] MEDS: VIT-B COMP/VIT-C/FOLIC ACID 1 TAB PO SCH (08:13)
[2018-09-17] MEDS: DIVALPROEX 500 MG TABEC PO SCH ×2 (08:13→20:43)
[2018-09-17] MEDS: ATORVASTATIN 80 MG TAB PO SCH (08:13)
[2018-09-17] MEDS: LISINOPRIL 20 MG TAB PO SCH ×2 (08:13→08:25)
[2018-09-17] MEDS: GABAPENTIN 300 MG CAP PO SCH (08:14)
[2018-09-17] MEDS: ASPIRIN 81 MG TAB.CHEW PO SCH (08:14)
[2018-09-17 08:15] LABS: ALBUMIN 2.9 g/dL (3.4-5.0); ANION GAP 17.7 (8-16); CARBON DIOXIDE 28.1 mmol/L (21-32); POTASSIUM 4.8 mmol/L (3.5-5.1); TOTAL BILIRUBIN 0.4 mg/dL (0.0-1.0)
[2018-09-17 08:18] LABS: CREATININE 10.1 mg/dL (0.7-1.3)
[2018-09-17] MEDS: METOPROLOL SUCCINATE 50 MG TABER PO SCH (08:24)
[2018-09-17 12:00] VITALS: BP 108/67
[2018-09-17 16:00] VITALS: BP 91/65
[2018-09-17 20:00] VITALS: BP 123/69
[2018-09-17] MEDS: traZODone 50 MG TAB PO SCH (20:42)
[2018-09-17] MEDS: LEVOFLOXACIN 250 MG/D5 PREMIX 50 ML IV SCH (20:43)
[2018-09-18] VITALS: BP 95/64
[2018-09-18] MEDS: guaiFENesin DM 200/20 MG-10 ML 10 ML UDC PO PRN ×2 (01:01→11:23)
[2018-09-18] MEDS: ALBUTEROL 0.083% 2.5 MG/3 ML NEBU IH SCH ×4 (01:25→20:07)
[2018-09-18] MEDS: IPRATROPIUM 0.02% 0.5 MG/2.5 ML NEBU INH SCH ×4 (01:25→20:06)
[2018-09-18] MEDS ORDERED: NACL 0.9% 500 ML IV SCH (03:45)
[2018-09-18] MEDS: traMADol 50 MG TAB PO PRN ×2 (03:57→13:35)
[2018-09-18 04:00] VITALS: BP 81/59
[2018-09-18] MEDS: FUROSEMIDE 40 MG/4 ML VIAL IVP SCH ×3 (04:00→20:20)
[2018-09-18] MEDS: PANTOPRAZOLE 40 MG TABEC PO SCH (05:54)
[2018-09-18 06:57] LABS: ALBUMIN 2.9 g/dL (3.4-5.0); ANION GAP 18.5 (8-16); CARBON DIOXIDE 25.1 mmol/L (21-32); POTASSIUM 4.6 mmol/L (3.5-5.1); TOTAL BILIRUBIN 0.4 mg/dL (0.0-1.0)
[2018-09-18 06:59] LABS: BASOPHILS # (AUTO) 0.1 K/uL (0.00-0.22); BASOPHILS % (AUTO) 1.2 % (0.0-2.0); EOSINOPHILS # (AUTO) 0.6 K/uL (0-0.4); HEMATOCRIT 33.7 % (36-52); HEMOGLOBIN 10.4 g/dL (12.0-18.0); LYMPHOCYTES # (AUTO) 0.8 K/uL (2.0-11.5); LYMPHOCYTES % (AUTO) 20.7 % (20.5-51.1); MEAN CORPUSCULAR HEMOGLOBIN 31 pg (27-31); MEAN CORPUSCULAR HGB CONC 31 g/dL (33-37); MEAN CORPUSCULAR VOLUME 101.6 fL (80-94); MONOCYTES # (AUTO) 0.9 K/uL (0.8-1.0); NEUTROPHILS # (AUTO) 1.7 K/uL (1.8-7.7); NEUTROPHILS % (AUTO) 41.1 % (42.2-75.2); PLATELET COUNT (AUTO) 115 K/uL (140-450); RED BLOOD CELL COUNT(AUTO) 3.32 MIL/uL (4.20-6.10); RED CELL DISTRIBUTION WIDTH 17.5 % (11.6-13.7)
[2018-09-18 07:02] LABS: CREATININE 8.3 mg/dL (0.7-1.3)
[2018-09-18 08:00] VITALS: BP 103/66
[2018-09-18] MEDS: GABAPENTIN 300 MG CAP PO SCH (08:48)
[2018-09-18] MEDS: SEVELAMER CARBONATE 800 MG TAB PO SCH ×3 (08:48→17:24)
[2018-09-18] MEDS: VIT-B COMP/VIT-C/FOLIC ACID 1 TAB PO SCH (08:48)
[2018-09-18] MEDS: CALCITRIOL 0.25 MCG CAPLF PO SCH (08:48)
[2018-09-18] MEDS: ATORVASTATIN 80 MG TAB PO SCH (08:48)
[2018-09-18] MEDS: ASPIRIN 81 MG TAB.CHEW PO SCH (08:49)
[2018-09-18] MEDS: DIVALPROEX 500 MG TABEC PO SCH ×2 (08:49→20:26)
[2018-09-18] MEDS: MORPHINE SULFATE 2 MG/ML SYR IVP PRN ×2 (08:49→20:26)
[2018-09-18] MEDS: TAMSULOSIN 0.4 MG CAP PO SCH (08:49)
[2018-09-18] MEDS: LISINOPRIL 20 MG TAB PO SCH (09:00)
[2018-09-18] MEDS: METOPROLOL SUCCINATE 50 MG TABER PO SCH (09:00)
[2018-09-18 12:00] VITALS: BP 116/76
[2018-09-18 16:01] VITALS: BP 118/59
[2018-09-18 20:00] VITALS: BP 111/85
[2018-09-18] MEDS: traZODone 50 MG TAB PO SCH (20:26)
[2018-09-18] MEDS: ONDANSETRON 4 MG/2 ML VIAL IVP PRN (20:26)
[2018-09-19] VITALS: BP 108/80
[2018-09-19] MEDS: ALBUTEROL 0.083% 2.5 MG/3 ML NEBU IH SCH ×4 (01:41→19:57)
[2018-09-19] MEDS: IPRATROPIUM 0.02% 0.5 MG/2.5 ML NEBU INH SCH ×4 (01:41→19:57)
[2018-09-19] MEDS: MORPHINE SULFATE 2 MG/ML SYR IVP PRN ×2 (03:53→12:36)
[2018-09-19 04:00] VITALS: BP 110/80
[2018-09-19] MEDS: FUROSEMIDE 40 MG/4 ML VIAL IVP SCH ×3 (04:26→21:00)
[2018-09-19] MEDS: PANTOPRAZOLE 40 MG TABEC PO SCH (05:28)
[2018-09-19 08:00] VITALS: BP 122/80
[2018-09-19] MEDS: LISINOPRIL 20 MG TAB PO SCH (09:00)
[2018-09-19] MEDS: METOPROLOL SUCCINATE 50 MG TABER PO SCH (09:00)
[2018-09-19] MEDS: ONDANSETRON 4 MG/2 ML VIAL IVP PRN (09:05)
[2018-09-19] MEDS: ASPIRIN 81 MG TAB.CHEW PO SCH (09:26)
[2018-09-19] MEDS: GABAPENTIN 300 MG CAP PO SCH (09:26)
[2018-09-19] MEDS: VIT-B COMP/VIT-C/FOLIC ACID 1 TAB PO SCH (09:27)
[2018-09-19] MEDS: TAMSULOSIN 0.4 MG CAP PO SCH (09:27)
[2018-09-19] MEDS: ATORVASTATIN 80 MG TAB PO SCH (09:27)
[2018-09-19] MEDS: SEVELAMER CARBONATE 800 MG TAB PO SCH ×3 (09:27→18:13)
[2018-09-19] MEDS: CALCITRIOL 0.25 MCG CAPLF PO SCH (09:27)
[2018-09-19] MEDS: DIVALPROEX 500 MG TABEC PO SCH ×2 (09:27→21:13)
[2018-09-19 12:00] VITALS: BP 112/80
[2018-09-19] MEDS: methylPREDNISolone SS 125 MG/2 ML VIAL IVP SCH ×2 (12:36→21:13)
[2018-09-19] MEDS ORDERED: VANCOMYCIN PER PHARMACY MC PRN (14:25)
[2018-09-19 14:38] LABS: EOSINOPHILS # (AUTO) 0.5 K/uL (0-0.4); EOSINOPHILS % (AUTO) 16.5 % (0.0-4.0); HEMOGLOBIN 10.2 g/dL (12.0-18.0); LYMPHOCYTES # (AUTO) 0.9 K/uL (2.0-11.5); LYMPHOCYTES % (AUTO) 31.4 % (20.5-51.1); MEAN CORPUSCULAR HEMOGLOBIN 31 pg (27-31); MEAN CORPUSCULAR HGB CONC 31 g/dL (33-37); MEAN CORPUSCULAR VOLUME 101.3 fL (80-94); MONOCYTES # (AUTO) 0.1 K/uL (0.8-1.0); MONOCYTES % (AUTO) 4.1 % (1.7-9.3); NEUTROPHILS # (AUTO) 1.3 K/uL (1.8-7.7); PLATELET COUNT (AUTO) 101 K/uL (140-450); RED BLOOD CELL COUNT(AUTO) 3.25 MIL/uL (4.20-6.10); RED CELL DISTRIBUTION WIDTH 17.2 % (11.6-13.7); WHITE BLOOD COUNT (AUTO) 2.8 K/uL (4.8-10.8)
[2018-09-19 14:59] LABS: ANION GAP 16.4 (8-16); CARBON DIOXIDE 27.3 mmol/L (21-32); POTASSIUM 5.7 mmol/L (3.5-5.1); TOTAL BILIRUBIN 0.4 mg/dL (0.0-1.0)
[2018-09-19 15:01] LABS: CREATININE 10.8 mg/dL (0.7-1.3)
[2018-09-19 16:00] VITALS: BP 103/72
[2018-09-19] MEDS ORDERED: VANCOMYCIN 1,250 MG in DEXTROSE 5% 250 ML IV SCH (18:00)
[2018-09-19 20:00] VITALS: BP 98/72
[2018-09-19] MEDS: PIPER/TAZO 2.25GM/D5W PREMIX 50 ML IV SCH (21:14)
[2018-09-19] MEDS: traZODone 50 MG TAB PO SCH (21:14)
[2018-09-20] VITALS: BP 97/70
[2018-09-20] MEDS: ALBUTEROL 0.083% 2.5 MG/3 ML NEBU IH SCH ×4 (00:48→20:22)
[2018-09-20] MEDS: IPRATROPIUM 0.02% 0.5 MG/2.5 ML NEBU INH SCH ×4 (00:48→20:22)
[2018-09-20] MEDS: guaiFENesin DM 200/20 MG-10 ML 10 ML UDC PO PRN ×2 (03:49→11:29)
[2018-09-20] MEDS: FUROSEMIDE 40 MG/4 ML VIAL IVP SCH ×3 (03:49→20:26)
[2018-09-20 04:00] VITALS: BP 108/60
[2018-09-20] MEDS: methylPREDNISolone SS 125 MG/2 ML VIAL IVP SCH ×3 (04:00→20:26)
[2018-09-20] MEDS: PIPER/TAZO 2.25GM/D5W PREMIX 50 ML IV SCH ×3 (04:00→21:00)
[2018-09-20] MEDS: PANTOPRAZOLE 40 MG TABEC PO SCH (05:33)
[2018-09-20 08:00] VITALS: BP 120/86
[2018-09-20 09:00] LABS: BASOPHILS % (AUTO) 0.3 % (0.0-2.0); EOSINOPHILS % (AUTO) 0.1 % (0.0-4.0); HEMATOCRIT 33.5 % (36-52); HEMOGLOBIN 10.3 g/dL (12.0-18.0); LYMPHOCYTES # (AUTO) 0.3 K/uL (2.0-11.5); LYMPHOCYTES % (AUTO) 9.2 % (20.5-51.1); MEAN CORPUSCULAR HEMOGLOBIN 31 pg (27-31); MEAN CORPUSCULAR HGB CONC 31 g/dL (33-37); MEAN CORPUSCULAR VOLUME 101.2 fL (80-94); MONOCYTES # (AUTO) 0.1 K/uL (0.8-1.0); MONOCYTES % (AUTO) 2.8 % (1.7-9.3); NEUTROPHILS # (AUTO) 2.7 K/uL (1.8-7.7); NEUTROPHILS % (AUTO) 87.6 % (42.2-75.2); PLATELET COUNT (AUTO) 85 K/uL (140-450); RED BLOOD CELL COUNT(AUTO) 3.31 MIL/uL (4.20-6.10); RED CELL DISTRIBUTION WIDTH 16.8 % (11.6-13.7); WHITE BLOOD COUNT (AUTO) 3.1 K/uL (4.8-10.8)
[2018-09-20] MEDS: METOPROLOL SUCCINATE 50 MG TABER PO SCH (09:00)
[2018-09-20 09:23] LABS: ANION GAP 21.7 (8-16); CARBON DIOXIDE 24.7 mmol/L (21-32); TOTAL BILIRUBIN 0.5 mg/dL (0.0-1.0)
[2018-09-20] MEDS: VIT-B COMP/VIT-C/FOLIC ACID 1 TAB PO SCH (09:47)
[2018-09-20] MEDS: ASPIRIN 81 MG TAB.CHEW PO SCH (09:47)
[2018-09-20] MEDS: TAMSULOSIN 0.4 MG CAP PO SCH (09:48)
[2018-09-20] MEDS: DIVALPROEX 500 MG TABEC PO SCH ×2 (09:48→20:26)
[2018-09-20] MEDS: LISINOPRIL 20 MG TAB PO SCH (09:49)
[2018-09-20] MEDS: ATORVASTATIN 80 MG TAB PO SCH (09:49)
[2018-09-20 09:50] LABS: CREATININE 13.9 mg/dL (0.7-1.3); POTASSIUM 6.4 mmol/L (3.5-5.1)
[2018-09-20] MEDS: CALCITRIOL 0.25 MCG CAPLF PO SCH (09:50)
[2018-09-20] MEDS: SEVELAMER CARBONATE 800 MG TAB PO SCH ×3 (09:51→17:00)
[2018-09-20] MEDS ORDERED: SODIUM POLYSTYRENE 15 GM/60 ML UDBTL PO SCH (11:00)
[2018-09-20 11:40] LABS: PROTHROMBIN TIME 9.9 secs (10.8-13.4)
[2018-09-20 12:00] VITALS: BP 119/86
[2018-09-20] MEDS ORDERED: LORazepam 2 MG/ML VIAL ONE (12:16)
[2018-09-20] MEDS ORDERED: LORazepam 2 MG/ML VIAL IVP PRN (12:16)
[2018-09-20 16:00] VITALS: BP 137/89
[2018-09-20 20:00] VITALS: BP 122/82
[2018-09-20] MEDS: MORPHINE SULFATE 2 MG/ML SYR IVP PRN (20:25)
[2018-09-20] MEDS: traZODone 50 MG TAB PO SCH (20:26)
[2018-09-21] VITALS: BP 116/80
[2018-09-21] MEDS: IPRATROPIUM 0.02% 0.5 MG/2.5 ML NEBU INH SCH ×4 (01:53→18:51)
[2018-09-21] MEDS: ALBUTEROL 0.083% 2.5 MG/3 ML NEBU IH SCH ×4 (01:53→18:51)
[2018-09-21 04:00] VITALS: BP 128/80
[2018-09-21] MEDS: PIPER/TAZO 2.25GM/D5W PREMIX 50 ML IV SCH ×3 (04:59→21:35)
[2018-09-21] MEDS: MORPHINE SULFATE 2 MG/ML SYR IVP PRN ×2 (04:59→21:21)
[2018-09-21] MEDS: FUROSEMIDE 40 MG/4 ML VIAL IVP SCH ×3 (04:59→21:24)
[2018-09-21] MEDS: methylPREDNISolone SS 125 MG/2 ML VIAL IVP SCH ×3 (05:00→21:22)
[2018-09-21] MEDS: PANTOPRAZOLE 40 MG TABEC PO SCH (06:34)
[2018-09-21 08:00] VITALS: BP 129/88
[2018-09-21 09:00] LABS: HEMATOCRIT 36.5 % (36-52); HEMOGLOBIN 11.3 g/dL (12.0-18.0); LYMPHOCYTES # (AUTO) 0.2 K/uL (2.0-11.5); LYMPHOCYTES % (AUTO) 4.2 % (20.5-51.1); MEAN CORPUSCULAR HEMOGLOBIN 31 pg (27-31); MEAN CORPUSCULAR HGB CONC 31 g/dL (33-37); MEAN CORPUSCULAR VOLUME 101.2 fL (80-94); MONOCYTES # (AUTO) 0.2 K/uL (0.8-1.0); MONOCYTES % (AUTO) 3.8 % (1.7-9.3); NEUTROPHILS # (AUTO) 4.8 K/uL (1.8-7.7); PLATELET COUNT (AUTO) 101 K/uL (140-450); RED CELL DISTRIBUTION WIDTH 16.8 % (11.6-13.7); WHITE BLOOD COUNT (AUTO) 5.2 K/uL (4.8-10.8)
[2018-09-21 09:34] LABS: ALBUMIN 3.4 g/dL (3.4-5.0); ANION GAP 18.2 (8-16); CARBON DIOXIDE 27.4 mmol/L (21-32); POTASSIUM 4.6 mmol/L (3.5-5.1); TOTAL BILIRUBIN 0.4 mg/dL (0.0-1.0)
[2018-09-21 09:41] LABS: CREATININE 10.8 mg/dL (0.7-1.3)
[2018-09-21] MEDS: TAMSULOSIN 0.4 MG CAP PO SCH (09:44)
[2018-09-21] MEDS: VIT-B COMP/VIT-C/FOLIC ACID 1 TAB PO SCH (09:45)
[2018-09-21] MEDS: DIVALPROEX 500 MG TABEC PO SCH ×2 (09:45→21:24)
[2018-09-21] MEDS: ATORVASTATIN 80 MG TAB PO SCH (09:45)
[2018-09-21] MEDS: CALCITRIOL 0.25 MCG CAPLF PO SCH (09:45)
[2018-09-21] MEDS: SEVELAMER CARBONATE 800 MG TAB PO SCH ×3 (09:45→17:00)
[2018-09-21] MEDS: LISINOPRIL 20 MG TAB PO SCH (09:45)
[2018-09-21] MEDS: METOPROLOL SUCCINATE 50 MG TABER PO SCH (09:46)
[2018-09-21] MEDS: ASPIRIN 81 MG TAB.CHEW PO SCH (09:46)
[2018-09-21] MEDS ORDERED: VANCOMYCIN 1GM/DEXT 5% PREMIX 200 ML IV SCH (11:00)
[2018-09-21 12:00] VITALS: BP 140/89
[2018-09-21 16:00] VITALS: BP 100/65
[2018-09-21 20:00] VITALS: BP 122/82
[2018-09-21] MEDS: traZODone 50 MG TAB PO SCH (21:24)
[2018-09-22] VITALS: BP 108/80
[2018-09-22] MEDS: ALBUTEROL 0.083% 2.5 MG/3 ML NEBU IH SCH ×4 (01:00→19:59)
[2018-09-22] MEDS: IPRATROPIUM 0.02% 0.5 MG/2.5 ML NEBU INH SCH ×4 (01:00→20:00)
[2018-09-22 04:00] VITALS: BP 129/84
[2018-09-22] MEDS: FUROSEMIDE 40 MG/4 ML VIAL IVP SCH ×3 (05:31→21:57)
[2018-09-22] MEDS: PIPER/TAZO 2.25GM/D5W PREMIX 50 ML IV SCH ×3 (05:31→21:57)
[2018-09-22] MEDS: methylPREDNISolone SS 125 MG/2 ML VIAL IVP SCH ×3 (05:31→21:56)
[2018-09-22] MEDS: PANTOPRAZOLE 40 MG TABEC PO SCH (05:32)
[2018-09-22 08:00] VITALS: BP 117/85
[2018-09-22] MEDS: SEVELAMER CARBONATE 800 MG TAB PO SCH ×3 (08:57→18:05)
[2018-09-22] MEDS: CALCITRIOL 0.25 MCG CAPLF PO SCH (08:57)
[2018-09-22] MEDS: ATORVASTATIN 80 MG TAB PO SCH (08:57)
[2018-09-22] MEDS: VIT-B COMP/VIT-C/FOLIC ACID 1 TAB PO SCH (08:58)
[2018-09-22] MEDS: DIVALPROEX 500 MG TABEC PO SCH ×2 (08:58→21:57)
[2018-09-22] MEDS: ASPIRIN 81 MG TAB.CHEW PO SCH (08:59)
[2018-09-22] MEDS: TAMSULOSIN 0.4 MG CAP PO SCH (08:59)
[2018-09-22] MEDS: LISINOPRIL 20 MG TAB PO SCH (08:59)
[2018-09-22] MEDS: METOPROLOL SUCCINATE 50 MG TABER PO SCH (08:59)
[2018-09-22] MEDS: MORPHINE SULFATE 2 MG/ML SYR IVP PRN ×3 (09:05→23:33)
[2018-09-22 12:00] VITALS: BP 109/72
[2018-09-22 13:19] LABS: BASOPHILS % (AUTO) 0.5 % (0.0-2.0); EOSINOPHILS % (AUTO) 0.8 % (0.0-4.0); HEMATOCRIT 34.5 % (36-52); HEMOGLOBIN 10.6 g/dL (12.0-18.0); LYMPHOCYTES # (AUTO) 0.3 K/uL (2.0-11.5); LYMPHOCYTES % (AUTO) 5.6 % (20.5-51.1); MEAN CORPUSCULAR HEMOGLOBIN 31 pg (27-31); MEAN CORPUSCULAR HGB CONC 31 g/dL (33-37); MEAN CORPUSCULAR VOLUME 101.7 fL (80-94); MONOCYTES # (AUTO) 0.1 K/uL (0.8-1.0); MONOCYTES % (AUTO) 2.4 % (1.7-9.3); NEUTROPHILS # (AUTO) 4.8 K/uL (1.8-7.7); NEUTROPHILS % (AUTO) 90.7 % (42.2-75.2); PLATELET COUNT (AUTO) 85 K/uL (140-450); RED BLOOD CELL COUNT(AUTO) 3.39 MIL/uL (4.20-6.10); RED CELL DISTRIBUTION WIDTH 16.1 % (11.6-13.7); WHITE BLOOD COUNT (AUTO) 5.3 K/uL (4.8-10.8)
[2018-09-22 13:36] LABS: ANION GAP 15.1 (8-16); CARBON DIOXIDE 24.9 mmol/L (21-32)
[2018-09-22 13:38] LABS: CREATININE 8.9 mg/dL (0.7-1.3); TOTAL BILIRUBIN 0.3 mg/dL (0.0-1.0)
[2018-09-22 13:39] LABS: ALBUMIN 2.9 g/dL (3.4-5.0)
[2018-09-22 16:00] VITALS: BP 114/75
[2018-09-22] MEDS ORDERED: MORPHINE SULFATE 4 MG/ML SYR ONE (16:10)
[2018-09-22 20:00] VITALS: BP 103/76
[2018-09-22] MEDS: traZODone 50 MG TAB PO SCH (21:56)
[2018-09-23] VITALS: BP 140/98
[2018-09-23] MEDS: IPRATROPIUM 0.02% 0.5 MG/2.5 ML NEBU INH SCH ×4 (01:00→19:02)
[2018-09-23] MEDS: ALBUTEROL 0.083% 2.5 MG/3 ML NEBU IH SCH ×4 (01:00→19:02)
[2018-09-23 04:00] VITALS: BP 153/97
[2018-09-23] MEDS: methylPREDNISolone SS 125 MG/2 ML VIAL IVP SCH ×3 (05:22→21:02)
[2018-09-23] MEDS: PIPER/TAZO 2.25GM/D5W PREMIX 50 ML IV SCH ×3 (05:22→21:02)
[2018-09-23] MEDS: PANTOPRAZOLE 40 MG TABEC PO SCH (05:23)
[2018-09-23] MEDS: FUROSEMIDE 40 MG/4 ML VIAL IVP SCH ×3 (05:23→21:02)
[2018-09-23 08:00] VITALS: BP 130/82
[2018-09-23] MEDS: SEVELAMER CARBONATE 800 MG TAB PO SCH ×3 (09:33→17:49)
[2018-09-23] MEDS: ASPIRIN 81 MG TAB.CHEW PO SCH (09:33)
[2018-09-23] MEDS: DIVALPROEX 500 MG TABEC PO SCH ×2 (09:33→21:03)
[2018-09-23] MEDS: TAMSULOSIN 0.4 MG CAP PO SCH (09:34)
[2018-09-23] MEDS: ATORVASTATIN 80 MG TAB PO SCH (09:34)
[2018-09-23] MEDS: CALCITRIOL 0.25 MCG CAPLF PO SCH (09:35)
[2018-09-23] MEDS: METOPROLOL SUCCINATE 50 MG TABER PO SCH (09:35)
[2018-09-23] MEDS: VIT-B COMP/VIT-C/FOLIC ACID 1 TAB PO SCH (09:35)
[2018-09-23] MEDS: LISINOPRIL 20 MG TAB PO SCH (09:36)
[2018-09-23 12:00] VITALS: BP 125/78
[2018-09-23] MEDS ORDERED: VANCOMYCIN 500 MG in DEXTROSE 5% 100 ML IV SCH (14:00)
[2018-09-23] MEDS ORDERED: PRON IH (15:47)
[2018-09-23] MEDS ORDERED: FURO-570 PO (15:48)
[2018-09-23 16:00] VITALS: BP 129/82
[2018-09-23 19:45] VITALS: BP 114/69
[2018-09-23] MEDS: traZODone 50 MG TAB PO SCH (21:03)
[2018-09-24 00:15] VITALS: BP 113/71
[2018-09-24] MEDS: IPRATROPIUM 0.02% 0.5 MG/2.5 ML NEBU INH SCH ×4 (01:21→19:12)
[2018-09-24] MEDS: ALBUTEROL 0.083% 2.5 MG/3 ML NEBU IH SCH ×4 (01:21→19:12)
[2018-09-24 03:50] VITALS: BP 111/75
[2018-09-24] MEDS: PIPER/TAZO 2.25GM/D5W PREMIX 50 ML IV SCH (04:19)
[2018-09-24] MEDS: methylPREDNISolone SS 125 MG/2 ML VIAL IVP SCH ×3 (04:20→20:36)
[2018-09-24] MEDS: FUROSEMIDE 40 MG/4 ML VIAL IVP SCH ×3 (04:20→20:36)
[2018-09-24] MEDS: PANTOPRAZOLE 40 MG TABEC PO SCH (05:38)
[2018-09-24 06:32] LABS: HEPATITIS A ANTIBODY IGM Negative (Negative); HEPATITIS B CORE AB TOTAL Negative (Negative); HEPATITIS B SURFACE ANTIBODY Non Reactive (.); HEPATITIS B SURFACE ANTIGEN Negative (Negative)
[2018-09-24 08:00] VITALS: BP 125/83
[2018-09-24] MEDS: SEVELAMER CARBONATE 800 MG TAB PO SCH ×3 (08:40→16:38)
[2018-09-24] MEDS: ASPIRIN 81 MG TAB.CHEW PO SCH (08:40)
[2018-09-24] MEDS: TAMSULOSIN 0.4 MG CAP PO SCH (08:40)
[2018-09-24] MEDS: DIVALPROEX 500 MG TABEC PO SCH ×2 (08:40→20:36)
[2018-09-24] MEDS: ATORVASTATIN 80 MG TAB PO SCH (08:41)
[2018-09-24] MEDS: CALCITRIOL 0.25 MCG CAPLF PO SCH (08:41)
[2018-09-24] MEDS: VIT-B COMP/VIT-C/FOLIC ACID 1 TAB PO SCH (08:41)
[2018-09-24] MEDS: traMADol 50 MG TAB PO PRN ×2 (09:34→20:41)
[2018-09-24] MEDS: LISINOPRIL 20 MG TAB PO SCH (11:08)
[2018-09-24] MEDS: METOPROLOL SUCCINATE 50 MG TABER PO SCH (11:08)
[2018-09-24 12:00] VITALS: BP 117/77
[2018-09-24 13:42] LABS: BASOPHILS % (AUTO) 0.1 % (0.0-2.0); HEMATOCRIT 36.7 % (36-52); HEMOGLOBIN 11.4 g/dL (12.0-18.0); LYMPHOCYTES # (AUTO) 0.4 K/uL (2.0-11.5); LYMPHOCYTES % (AUTO) 6.4 % (20.5-51.1); MEAN CORPUSCULAR HEMOGLOBIN 31 pg (27-31); MEAN CORPUSCULAR HGB CONC 31 g/dL (33-37); MEAN CORPUSCULAR VOLUME 100.5 fL (80-94); MONOCYTES # (AUTO) 0.4 K/uL (0.8-1.0); MONOCYTES % (AUTO) 6.9 % (1.7-9.3); NEUTROPHILS # (AUTO) 5.6 K/uL (1.8-7.7); NEUTROPHILS % (AUTO) 86.6 % (42.2-75.2); PLATELET COUNT (AUTO) 101 K/uL (140-450); RED BLOOD CELL COUNT(AUTO) 3.65 MIL/uL (4.20-6.10); RED CELL DISTRIBUTION WIDTH 16.6 % (11.6-13.7); WHITE BLOOD COUNT (AUTO) 6.5 K/uL (4.8-10.8)
[2018-09-24 14:16] LABS: ANION GAP 17.8 (8-16); CARBON DIOXIDE 24.7 mmol/L (21-32); POTASSIUM 3.5 mmol/L (3.5-5.1)
[2018-09-24 14:18] LABS: CREATININE 8.8 mg/dL (0.7-1.3); TOTAL BILIRUBIN 0.3 mg/dL (0.0-1.0)
[2018-09-24 14:19] LABS: ALBUMIN 3.1 g/dL (3.4-5.0)
[2018-09-24] MEDS ORDERED: ALBU0.0912 IH (14:36)
[2018-09-24 16:00] VITALS: BP 108/73
[2018-09-24 20:00] VITALS: BP 120/85
[2018-09-24] MEDS: traZODone 50 MG TAB PO SCH (20:36)
[2018-09-25] VITALS: BP 116/64
[2018-09-25] MEDS: IPRATROPIUM 0.02% 0.5 MG/2.5 ML NEBU INH SCH ×4 (00:29→20:01)
[2018-09-25] MEDS: ALBUTEROL 0.083% 2.5 MG/3 ML NEBU IH SCH ×4 (00:29→20:01)
[2018-09-25 04:54] VITALS: BP 124/90
[2018-09-25] MEDS: methylPREDNISolone SS 125 MG/2 ML VIAL IVP SCH ×3 (04:59→21:15)
[2018-09-25] MEDS: FUROSEMIDE 40 MG/4 ML VIAL IVP SCH ×3 (04:59→21:00)
[2018-09-25] MEDS: PANTOPRAZOLE 40 MG TABEC PO SCH (06:08)
[2018-09-25 08:00] VITALS: BP 146/98
[2018-09-25] MEDS: DIVALPROEX 500 MG TABEC PO SCH ×2 (08:22→21:15)
[2018-09-25] MEDS: SEVELAMER CARBONATE 800 MG TAB PO SCH ×3 (08:22→17:19)
[2018-09-25] MEDS: METOPROLOL SUCCINATE 50 MG TABER PO SCH (08:22)
[2018-09-25] MEDS: VIT-B COMP/VIT-C/FOLIC ACID 1 TAB PO SCH (08:23)
[2018-09-25] MEDS: LISINOPRIL 20 MG TAB PO SCH (08:23)
[2018-09-25] MEDS: ATORVASTATIN 80 MG TAB PO SCH (08:23)
[2018-09-25] MEDS: traMADol 50 MG TAB PO PRN (08:23)
[2018-09-25] MEDS: CALCITRIOL 0.25 MCG CAPLF PO SCH (08:23)
[2018-09-25] MEDS: TAMSULOSIN 0.4 MG CAP PO SCH (08:23)
[2018-09-25 09:30] LABS: BASOPHILS % (AUTO) 0.4 % (0.0-2.0); HEMATOCRIT 32.5 % (36-52); HEMOGLOBIN 10.1 g/dL (12.0-18.0); LYMPHOCYTES # (AUTO) 0.2 K/uL (2.0-11.5); LYMPHOCYTES % (AUTO) 3.5 % (20.5-51.1); MEAN CORPUSCULAR HEMOGLOBIN 31 pg (27-31); MEAN CORPUSCULAR HGB CONC 31 g/dL (33-37); MEAN CORPUSCULAR VOLUME 99.5 fL (80-94); MONOCYTES # (AUTO) 0.1 K/uL (0.8-1.0); MONOCYTES % (AUTO) 1.8 % (1.7-9.3); NEUTROPHILS # (AUTO) 5.3 K/uL (1.8-7.7); NEUTROPHILS % (AUTO) 94.3 % (42.2-75.2); PLATELET COUNT (AUTO) 89 K/uL (140-450); RED BLOOD CELL COUNT(AUTO) 3.27 MIL/uL (4.20-6.10); RED CELL DISTRIBUTION WIDTH 16.5 % (11.6-13.7); WHITE BLOOD COUNT (AUTO) 5.6 K/uL (4.8-10.8)
[2018-09-25 10:09] LABS: ANION GAP 18.7 (8-16); POTASSIUM 4.7 mmol/L (3.5-5.1)
[2018-09-25 10:13] LABS: CREATININE 10.9 mg/dL (0.7-1.3)
[2018-09-25] MEDS ORDERED: BUPIVACAINE-MPF/EPI 0.25% 30 ML VIAL INJ ONE (12:54)
[2018-09-25] MEDS ORDERED: LIDOCAINE/EPI MPF 1%1:200000 30 ML VIAL INJ ONE (12:54)
[2018-09-25] MEDS ORDERED: LEVO500T2 PO (15:23)
[2018-09-25 16:00] VITALS: BP 116/81
[2018-09-25] MEDS: traZODone 50 MG TAB PO SCH (21:16)
== END 2018-09-25 21:14 | disposition home or self-care (01) | DRG 190 ==
LOC: MED 10:12 → MTU 13:17
PROVIDERS: ADMIT Hospitalist; ATTEND Hospitalist
PROC: 5A1D70Z Performance of Urinary Filtration, Intermittent, Less than 6 Hours Per Day (ICD-10-PCS; 2018-09-15)
PROC: 5A1D70Z Performance of Urinary Filtration, Intermittent, Less than 6 Hours Per Day (ICD-10-PCS; 2018-09-16)
PROC: 5A1D70Z Performance of Urinary Filtration, Intermittent, Less than 6 Hours Per Day (ICD-10-PCS; 2018-09-17)
PROC: 5A1D70Z Performance of Urinary Filtration, Intermittent, Less than 6 Hours Per Day (ICD-10-PCS; 2018-09-19)
PROC: 02HV33Z Insertion of Infusion Device into Superior Vena Cava, Percutaneous Approach (ICD-10-PCS; principal; 2018-09-20)
PROC: B548ZZA Ultrasonography of Superior Vena Cava, Guidance (ICD-10-PCS; 2018-09-20)
PROC: 5A1D70Z Performance of Urinary Filtration, Intermittent, Less than 6 Hours Per Day (ICD-10-PCS; 2018-09-20)
PROC: 5A1D70Z Performance of Urinary Filtration, Intermittent, Less than 6 Hours Per Day (ICD-10-PCS; 2018-09-21)
PROC: 5A1D70Z Performance of Urinary Filtration, Intermittent, Less than 6 Hours Per Day (ICD-10-PCS; 2018-09-22)
PROC: 5A1D70Z Performance of Urinary Filtration, Intermittent, Less than 6 Hours Per Day (ICD-10-PCS; 2018-09-23)
DX: I21.4 Non-ST elevation (NSTEMI) myocardial infarction (principal); J96.01 Acute respiratory failure with hypoxia; G93.40 Encephalopathy, unspecified; J18.9 Pneumonia, unspecified organism; I50.43 Acute on chronic combined systolic (congestive) and diastolic (congestive) heart failure; I13.2 Hypertensive heart and chronic kidney disease with heart failure and with stage 5 chronic kidney disease, or end stage renal disease; E11.22 Type 2 diabetes mellitus with diabetic chronic kidney disease; N18.6 End stage renal disease; E78.5 Hyperlipidemia, unspecified; E87.5 Hyperkalemia; F17.200 Nicotine dependence, unspecified, uncomplicated; J44.0 Chronic obstructive pulmonary disease with (acute) lower respiratory infection; D63.8 Anemia in other chronic diseases classified elsewhere; Z91.19 Patient's noncompliance with other medical treatment and regimen; Z99.2 Dependence on renal dialysis; Z79.82 Long term (current) use of aspirin; Z79.899 Other long term (current) drug therapy
CPT/HCPCS: 36415; 36600; 71045; 71250; 78582; 80048; 80053; 80202; 82550; 82553; 82803; 83880; 84484; 85025; 85610; 85730; 86704; 86706; 86708; 86709; 86803; 86886; 86900; 86901; 87070; 87081; 87205; 87340; 90935; 93005; 93970; 94640; 94660; 96374; 96375; 97110; 97116; 97530; 99291; J0610; J1644; J1815; J1940; J1956; J2001; J2060; J2270; J2405; J2543; J2930; J3370; J3490; J7030; J7060; J7613; J7644; Q0092

== ENCOUNTER 2018-10-31 09:25 | Inpatient (IN) | payer OTHER ==
[~2018-10-31] VITALS: Ht 175.3 cm; Wt 88.5 kg
[~2018-10-31 09:25] MED LIST changes: +ALBU0.0912 IH; +FURO-570 PO; +LEVO500T2 PO
--- NOTE | 2018-10-31 09:26 | NUR ---
PT BIBA ALS TO BED 5
[2018-10-31 09:30] VITALS: BP 116/69
[2018-10-31] MEDS ORDERED: NACL 0.9% 500 ML IV ONE (09:30)
--- NOTE | 2018-10-31 09:38 | NUR ---
XRAY AT BEDSIDE
--- NOTE | 2018-10-31 09:45 | NUR ---
PT HAS REFUSED ABG AND DR. BREEN INFORMED
[2018-10-31 10:18] LABS: HEMATOCRIT 23.7 % (36-52); HEMOGLOBIN 7.5 g/dL (12.0-18.0); MEAN CORPUSCULAR HEMOGLOBIN 31 pg (27-31); MEAN CORPUSCULAR HGB CONC 32 g/dL (33-37); MEAN CORPUSCULAR VOLUME 97.4 fL (80-94); PLATELET COUNT (AUTO) 131 K/uL (140-450); RED BLOOD CELL COUNT(AUTO) 2.43 MIL/uL (4.20-6.10); RED CELL DISTRIBUTION WIDTH 17.6 % (11.6-13.7); WHITE BLOOD COUNT (AUTO) 8.9 K/uL (4.8-10.8)
--- NOTE | 2018-10-31 10:19 | NUR ---
PATIENT PRESENTS TO ED WITH C/O RT SIDED CP/ABD PAIN AND SOB;PT IS ABOUT TO HAVE DIALYSIS TODAY WHEN HE SUDDENLY HAVE SOB.PT ON 6 LPM O2 VIA NC. SATTING AT 92 % ROOM AIR.DENIES N/V/D; SKIN IS PINK/WARM/DRY; AAOX4; PATIENT STATES PAIN OF 10/10 AT THIS TIME;PATIENT POSITIONED FOR COMFORT; HOB ELEVATED; BEDRAILS UP X2; BED DOWN. ER MD MADE AWARE OF PT STATUS.
[2018-10-31 10:40] LABS: BASOPHILS % (MANUAL) 0 % (0-2); EOSINOPHILS % (MANUAL) 8 % (0-4); LYMPHOCYTES % (MANUAL) 8 % (20-46); MONOCYTES % (MANUAL) 15 % (5-12)
[2018-10-31] MEDS ORDERED: LANS15EC28 PO (10:41)
[2018-10-31] MEDS ORDERED: NITR0.4T2 SL (10:41)
[2018-10-31] MEDS ORDERED: SYN.05 PO (10:41)
[2018-10-31] MEDS ORDERED: VITA1TAB44 PO (10:41)
[2018-10-31] MEDS ORDERED: MULT1SGL58 PO (10:41)
[2018-10-31] MEDS ORDERED: CARV12.5 PO (10:41)
[2018-10-31] MEDS ORDERED: DOCU-299 PO (10:41)
[2018-10-31] MEDS ORDERED: PHO667 PO (10:41)
[2018-10-31] MEDS ORDERED: ACET-8386 PO (10:43)
[2018-10-31] MEDS ORDERED: ONDANSETRON 4 MG/2 ML VIAL IVP ONE (10:50)
[2018-10-31 10:59] LABS: ANION GAP 15.5 (8-16); CARBON DIOXIDE 31.4 mmol/L (21-32); POTASSIUM 4.9 mmol/L (3.5-5.1); TOTAL BILIRUBIN 0.6 mg/dL (0.0-1.0)
[2018-10-31 11:01] LABS: CREATININE 11.9 mg/dL (0.7-1.3)
[2018-10-31] MEDS ORDERED: KETOROLAC 30 MG/ML VIAL IVP ONE (11:10)
[2018-10-31] MEDS ORDERED: ASPIRIN 81 MG TAB.CHEW PO ONE (11:10)
--- NOTE | 2018-10-31 11:32 | NUR ---
PT REFUSES TO BE STARIGHT CATH. PER PT HE'LL TRY TO URINATE. PER PT HE STILL PRODUCING URINE.
[2018-10-31] MEDS ORDERED: ALBUTEROL HFA MDI 90 MCG/ACTUATION 8 GM INH SCH (12:00)
[2018-10-31] MEDS ORDERED: ACETAMINOPHEN 325 MG TAB PO PRN (12:00)
[2018-10-31] MEDS ORDERED: ONDANSETRON 4 MG/2 ML VIAL IVP PRN (12:00)
[2018-10-31] MEDS ORDERED: LORazepam 2 MG/ML VIAL IVP PRN (12:00)
[2018-10-31] MEDS ORDERED: HYDROcodone/APAP 5/325 MG 1 TAB TAB PO PRN (12:00)
--- NOTE | 2018-10-31 12:26 | NUR ---
PT TAKEN TO TELE FLOOR BY TRI YE AND EMT KATHARINE
[2018-10-31 12:30] VITALS: BP 110/69
--- NOTE | 2018-10-31 12:30 | NUR ---
PT ARRIVED TO ROOM 114 FROM ER IN [facility].
--- NOTE | 2018-10-31 12:42 | NUR ---
Patient will be admitted to care of Dr Waldron. Admited to Tele. Will go to [id number] . Belongings list completed. Report to TRI Larsen.
[2018-10-31] MEDS ORDERED: ALBUTEROL 0.083% 2.5 MG/3 ML NEBU INH PRN (12:55)
--- NOTE | 2018-10-31 13:55 | NUR ---
NEW ADMIT. PATIENT DOES NOT HAVE ENOUGH INFORMATION IN THEIR CHART TO ACCURATELY SCREEN. PATIENT IS NUTRITION SCREEN DUE IN TWO DAYS 11/02/18. BUDDY BEDOYA MBA, RD
[2018-10-31] MEDS: DICYCLOMINE 10 MG CAP PO SCH ×3 (14:22→20:16)
[2018-10-31] MEDS: DIVALPROEX 500 MG TABER PO SCH ×2 (14:22→17:27)
--- NOTE | 2018-10-31 14:22 | NUR ---
ADMINISTERED SCHEDULED MEDICATIONS. PT TOLERATED WELL. NO OTHER NEEDS AT THIS TIME.
--- NOTE | 2018-10-31 15:57 | NUR ---
SPOKE TO CORONA ORTEGA FROM [facility] DIALYSIS FOR PT SCHEDULED HEMODIALYSIS TODAY AND TOMORROW 11/01/18.
[2018-10-31 16:00] VITALS: BP 124/80
--- NOTE | 2018-10-31 16:15 | NUR ---
DIALYSIS NURSE AT THE BEDSIDE.
[2018-10-31] MEDS: CALCIUM ACETATE 667 MG TAB PO SCH (16:17)
[2018-10-31] MEDS: CARVEDILOL 12.5 MG TAB PO SCH (17:00)
--- NOTE | 2018-10-31 17:28 | NUR ---
ADMINISTERED SCHEDULED MEDICATION. PT TOLERATED WELL. DIALYSIS NURSE AT THE BEDSIDE. NO OTHER NEEDS AT THIS TIME.
--- NOTE | 2018-10-31 18:49 | NUR ---
HEMODIALYSIS COMPLETED BY DIALYSIS NURSE INES, 2.0L TAKEN OUT OVER [id number], PER REPORT.
--- NOTE | 2018-10-31 19:25 | NUR ---
ENDORSED PT TO TRI COX FOR CONTINUITY OF CARE. PT STABLE, AWAKE, AND ALERT.
--- NOTE | 2018-10-31 19:26 | NUR ---
RECEIVED REPORT FROM NATASHA AT BEDSIDE FOR CONTINUITY OF CARE. PT AAOX4. PT IV NOTED RAC 22G SALINE LOCK. AV SHUNT TO RFA. NO SOB NO S/S OF DISTRESS ON NC 5L OXIMEZER. BED LOWERED CALL LIGHT WITHIN REACH WILL CONTINUE TO MONITOR.
[2018-10-31 20:00] VITALS: BP 140/90
[2018-10-31] MEDS: DOCUSATE SODIUM 100 MG GELCAP PO SCH (20:16)
[2018-10-31] MEDS: NITROGLYCERIN 0.4 MG TAB SL PRN ×3 (22:41→22:57)
[2018-10-31 22:56] LABS: APPEARANCE,URINE CLEAR (CLEAR); BILIRUBIN,URINE NEGATIVE (NEGATIVE); BLOOD, URINE NEGATIVE (NEGATIVE); COLOR,URINE YELLOW (YELLOW); LEUKOCYTE ESTERASE ,URINE NEGATIVE (NEGATIVE); NITRITE, URINE NEGATIVE (NEGATIVE); PH,URINE 8.5 (5.0-9.0); UGLUCOSE NEGATIVE (NEGATIVE)
[2018-10-31 23:14] LABS: RBC,URINE 0-5 (RARE) /HPF (0-5); WBC,URINE 0-5 (RARE) /HPF (0-5)
[2018-11-01] VITALS (7 sets, daily range): BP systolic 121–150; BP diastolic 59–97
--- NOTE | 2018-11-01 04:00 | NUR ---
PT REFUSED TROPONIN DRAW
[2018-11-01] MEDS: ALUMINUM HYD/MAG/SIMETHICONE 30 ML UDC PO PRN (04:30)
[2018-11-01] MEDS: HYDROcodone/APAP 5/325 MG 1 TAB TAB PO PRN ×2 (04:30→16:32)
[2018-11-01] MEDS ORDERED: PANTOPRAZOLE 40 MG TABEC PO SCH (06:30)
[2018-11-01] MEDS: CALCIUM ACETATE 667 MG TAB PO SCH ×3 (06:46→16:31)
[2018-11-01] MEDS: LEVOTHYROXINE 0.05 MG TAB PO SCH (06:46)
--- NOTE | 2018-11-01 07:10 | NUR ---
ENDORSED REPORT TO DAYSHIFT NURSE AT BEDSIDE FOR CONTINUITY OF CARE.
--- NOTE | 2018-11-01 07:30 | NUR ---
PATIENT IS AWAKE, ALERT, RESPIRATION EVEN AND UNLABOR ON 5L OXIMIZER. SKIN IS WARM AND DRY. IV SALINE LOCK NOTED. DENIES PAIN AND SHORTNESS OF BREATH. AV SHUNT TO THE LEFT NOTED. PLAN OF CARE WAS DISCUSS. BED IS IN LOW POSITION. CALL LIGHT WITHIN REACH.
[2018-11-01] MEDS: CARVEDILOL 12.5 MG TAB PO SCH ×2 (08:00→16:32)
[2018-11-01 08:06] LABS: HEMOGLOBIN 7.5 g/dL (12.0-18.0); MEAN CORPUSCULAR HEMOGLOBIN 30 pg (27-31); MEAN CORPUSCULAR HGB CONC 31 g/dL (33-37); MEAN CORPUSCULAR VOLUME 97.9 fL (80-94); PLATELET COUNT (AUTO) 125 K/uL (140-450); RED BLOOD CELL COUNT(AUTO) 2.45 MIL/uL (4.20-6.10); RED CELL DISTRIBUTION WIDTH 17.9 % (11.6-13.7); WHITE BLOOD COUNT (AUTO) 6.9 K/uL (4.8-10.8)
[2018-11-01] MEDS: LISINOPRIL 20 MG TAB PO SCH (08:18)
[2018-11-01] MEDS: VIT-B COMP/VIT-C/FOLIC ACID 1 TAB PO SCH (08:26)
[2018-11-01] MEDS: DIVALPROEX 500 MG TABER PO SCH ×3 (08:27→16:31)
[2018-11-01] MEDS: MULTIVITAMIN 1 TAB PO SCH (08:27)
[2018-11-01] MEDS: ASPIRIN 81 MG TAB.CHEW PO SCH (08:28)
[2018-11-01] MEDS: DICYCLOMINE 10 MG CAP PO SCH ×4 (08:28→21:57)
[2018-11-01] MEDS: TAMSULOSIN 0.4 MG CAP PO SCH (08:31)
[2018-11-01] MEDS: ATORVASTATIN 20 MG TAB PO SCH (08:36)
[2018-11-01 08:40] LABS: ALBUMIN 2.8 g/dL (3.4-5.0); ANION GAP 11.6 (8-16); CARBON DIOXIDE 29.4 mmol/L (21-32); TOTAL BILIRUBIN 0.5 mg/dL (0.0-1.0)
[2018-11-01 08:42] LABS: CREATININE 9.6 mg/dL (0.7-1.3)
[2018-11-01 08:51] LABS: BASOPHILS % (MANUAL) 0 % (0-2); EOSINOPHILS % (MANUAL) 10 % (0-4); LYMPHOCYTES % (MANUAL) 13 % (20-46); MONOCYTES % (MANUAL) 17 % (5-12)
[2018-11-01] MEDS ORDERED: ATORVASTATIN 80 MG TAB PO SCH (09:00)
[2018-11-01] MEDS ORDERED: NON-FORMULARY ITEM (Lansoprazole* (Prevacid 24Hr*) 30 MG) PO SCH (09:00)
--- NOTE | 2018-11-01 10:00 | NUR ---
PATIENT WAS AWAKE, ALERT. RESPIRATION EVEN, UNLABOR ON 5L OXYMIZER. DIALYSIS IS AT BEDSIDE. NO DISTRESS NOTED AT THIS TIME. CALL LIGHT WITHIN REACH
--- NOTE | 2018-11-01 12:00 | NUR ---
PATIENT WATCHING TV COMFORTABLY NO DISTRESS NOTED AT THIS TIME.
--- NOTE | 2018-11-01 14:00 | NUR ---
PATIENT WAS AWAKE, ALERT, WATCHING TV COMFORTABLY. RESPIRATION EVEN, UNLABOR ON 5L OXYMIZER. NO DISTRESS NOTED AT THIS TIME
--- NOTE | 2018-11-01 15:52 | NUR ---
PATIENT COMPLAINED " CAN'T BREATH". OXYMIZER WAS FOUND ON PATIENT'S BED. PATIENT WAS INSTRUCTED TO WEAR OXYMIZER AT ALL TIME TO HELP WITH BREATHING, SP02 ON 5L OXYMIZER 96%, WILL CONTINUE TO MONITOR. PATIENT ALSO COMPLAINED OF ABDOMINAL PAIN AND REQUESTED PAIN MED. WILL MEDICATE PER ORDER
[2018-11-01] MEDS ORDERED: NITR0.4T2 SL (17:14)
--- NOTE | 2018-11-01 17:30 | NUR ---
PATIENT WAS AWAKE, ALERT. RESPIRATION EVEN, UNLABOR ON 5 OXYMIZER. NO DISTRESS NOTED AT THIS TIME
--- NOTE | 2018-11-01 18:33 | NUR ---
DISCHARGE INSTRUCTION WERE GIVEN AND EXPLAINED. PATIENT VERBALIZED UNDERSTANDING. PATIENT IS STABLE. VITAL SIGNS STABLE. AWAITING FOR SHOT EXAMINER
--- NOTE | 2018-11-01 19:29 | NUR ---
ENDORSED REPORT TO NIGHT NURSE FOR CONTINUITY OF CARE. PATIENT IS STABLE AT THIS TIME.
--- NOTE | 2018-11-01 21:25 | NUR ---
CALLED [facility]. [id number] [place] [id number] DIRECTOR LOSS PREVENTION BAKARI [facility] STATED HE IS UNABLE TO MEDIA PRODUCTION MANAGER TONIGHT AND COULD PICK HIM UP TOMORROW NOON. PT IS AWARE AND HE HAS TO GO HOME WITH O2.
--- NOTE | 2018-11-01 21:45 | NUR ---
CALLED MD BOBBI CALDERON (MUSIC ARTIST FOR [employer]) LET HIM KNOW PT WAS DISCHARGE BUT WONT BE ABLE TO GO BACK TO [facility] UNTIL PRODUCTION PROOFREADER TOMORROW AT NOON. [facility] STATED TO HOLD DISCHARGE, PLACED ADDITIONAL ORDERS.
[2018-11-01] MEDS: DOCUSATE SODIUM 100 MG GELCAP PO SCH (21:57)
[2018-11-02] VITALS: BP 125/78
[2018-11-02 04:00] VITALS: BP 122/82
--- NOTE | 2018-11-02 05:51 | NUR ---
RN ADMISSIONS ISRRAEL LUGO AT [facility] AND BOARD STATED WILL AUTOMATION ARCHITECT PT AT AM BEFORE 9AM IF NOT AT 2PM
[2018-11-02] MEDS: NITROGLYCERIN 0.4 MG TAB SL PRN (06:05)
[2018-11-02] MEDS: ALUMINUM HYD/MAG/SIMETHICONE 30 ML UDC PO PRN (06:56)
[2018-11-02] MEDS: LEVOTHYROXINE 0.05 MG TAB PO SCH (06:59)
[2018-11-02] MEDS: CALCIUM ACETATE 667 MG TAB PO SCH (06:59)
--- NOTE | 2018-11-02 07:05 | NUR ---
ENDORSED REPORT TO DAYSHIFT NURSE AT BEDSIDE FOR CONTINUITY OF CARE.
--- NOTE | 2018-11-02 07:10 | NUR ---
RECEIVED PT REPORT FROM NIGHTSHIFT RN AT BEDSIDE FOR CONTINUITY OF CARE. PT AAOX4. PT IV NOTED TO R AC 22G, PATENT AND INTACT, SL. AV SHUNT TO L FA. NO SOB NO S/S OF DISTRESS ON O2 5L NC. BED IN LOWEST POSITION, CALL LIGHT WITHIN REACH, WILL CONTINUE TO MONITOR.
--- NOTE | 2018-11-02 07:45 | NUR ---
PT REFUSED VITAL SIGNS CHECK. PT C/O STOMACH PAIN. PT WANTS FOOD, HUSTLES STAFF TO GET FOOD FOR HIM. PT REFUSED NORCO.
[2018-11-02 08:00] VITALS: BP 153/102
--- NOTE | 2018-11-02 08:00 | NUR ---
PT HAVING BREAKFAST, VITALS TAKEN, NO S/S OF ACUTE DISTRESS NOTED.
--- NOTE | 2018-11-02 08:05 | NUR ---
PT HAD LARGE BMX1, URINEX1, IN THE RESTROOM. NO S/S OF DISTRESS. O2 SAT 94% ON 5L O2 VIA NC. DECREASED O2 TO 4L VIA NC. PT TOLERATING WELL.
--- NOTE | 2018-11-02 08:10 | NUR ---
PATIENT REFUSED HEPARIN. BENEFITS AND RISKS EXPLAINED. PATIENT STILL REFUSED.
[2018-11-02] MEDS: DIVALPROEX 500 MG TABER PO SCH (08:15)
[2018-11-02] MEDS: DICYCLOMINE 10 MG CAP PO SCH (08:15)
[2018-11-02] MEDS: LISINOPRIL 20 MG TAB PO SCH (08:15)
[2018-11-02] MEDS: TAMSULOSIN 0.4 MG CAP PO SCH (08:16)
[2018-11-02] MEDS: CARVEDILOL 12.5 MG TAB PO SCH (08:16)
[2018-11-02] MEDS: VIT-B COMP/VIT-C/FOLIC ACID 1 TAB PO SCH (08:16)
[2018-11-02] MEDS: ASPIRIN 81 MG TAB.CHEW PO SCH (08:16)
[2018-11-02] MEDS: ATORVASTATIN 20 MG TAB PO SCH (08:17)
[2018-11-02] MEDS: MULTIVITAMIN 1 TAB PO SCH (08:17)
--- NOTE | 2018-11-02 08:24 | NUR ---
PATIENT HAS BEEN SCREENED AND CATEGORIZED MODERATE NUTRITION RISK. PATIENT WILL BE SEEN WITHIN 3-5 DAYS OF ADMISSION. 11/02/18 11/04/[address]
[2018-11-02] MEDS: HYDROcodone/APAP 5/325 MG 1 TAB TAB PO PRN (08:43)
--- NOTE | 2018-11-02 09:30 | NUR ---
SPOKE WITH PHARMACEUTICAL ENGINEER TO PLATE CUTTER PT, PHARMACEUTICAL ENGINEER SAID HE IS COMING AT 11 O'CLOCK, MADE PHARMACEUTICAL ENGINEER AWARE PT HAS DOCTOR APPT AT 3PM TODAY. PHARMACEUTICAL ENGINEER SAID HE KNOWS.
--- NOTE | 2018-11-02 10:05 | NUR ---
CM NOTE PER LOKI BARTLETT, PATIENT'S NURSE, HE HAS CONTACTED [facility] AND PATIENT IS SCHEDULED TO BE PICKED UP THIS MORNING. PER LOKI RN, PATIENT HAS HIS OWN HOME O2 BEDSIDE WHICH PATIENT WILL USE DURING THE TRANSPORT. PER SANDRA OF [facility] (PCP) PH# [phone], THE PATIENT IS SCHEDULED FOR OUTPATIENT FOLLOW UP APPOINTMENT TODAY 11/02/18, 3:30 PM, CLINIC AT [address] [place] [address]. NOTIFIED CHARLES OF OF ROOM AND BOARD PH# [phone] AND PATIENT'S NURSE LOKI BARTLETT FOR HIS OUTPATIENT FOLLOW UP SCHEDULE. CHARLES OF PATIENT'S ROOM AND BOARD CONFIRMED THAT SHE IS AWARE OF PATIENT'S OUTPATIENT FOLLOW UP APPOINTMENT TODAY.
--- NOTE | 2018-11-02 10:10 | NUR ---
PROVIDED PT WITH ELECTRICAL SHAVER. PT SHAVED HIMSELF AND DRESSED HIMSELF. NO S/S OF ACUTE DISTRESS NOTED.
--- NOTE | 2018-11-02 11:15 | NUR ---
PT LEFT WITH HIS INFORMATICS APPLICATION ANALYST WITH HIS OWN OXYGEN TANK. PT ON O2 4L NC, NO S/S OF ACUTE DISTRESS. IV DC'D, TIP INTACT, PRESSURE APPLIED. MADE PT AND INFORMATICS APPLICATION ANALYST AWARE THAT PT HAS APPT WITH HIS PCP, ADDRESS AND PHONE NUMBER PROVIDED. PT HAS RX WITH HIS DISCHARGE PAPER.
[2018-11-02] MEDS ORDERED: NITR0.4T94 SL (11:18)
[2018-11-02] MEDS ORDERED: MAA30 PO (11:23)
== END 2018-11-02 11:15 | disposition home or self-care (01) | DRG 190 ==
LOC: MED 09:25 → MTU 11:56
PROVIDERS: ADMIT Hospitalist; ATTEND Hospitalist
DX: I21.A1 Myocardial infarction type 2 (principal); I13.2 Hypertensive heart and chronic kidney disease with heart failure and with stage 5 chronic kidney disease, or end stage renal disease; E11.22 Type 2 diabetes mellitus with diabetic chronic kidney disease; E44.0 Moderate protein-calorie malnutrition; N18.6 End stage renal disease; I50.9 Heart failure, unspecified; J44.9 Chronic obstructive pulmonary disease, unspecified; D63.8 Anemia in other chronic diseases classified elsewhere; G40.909 Epilepsy, unspecified, not intractable, without status epilepticus; Z99.2 Dependence on renal dialysis; Z68.28 Body mass index [BMI] 28.0-28.9, adult; Z79.82 Long term (current) use of aspirin; Z79.899 Other long term (current) drug therapy; Z79.51 Long term (current) use of inhaled steroids
CPT/HCPCS: 36415; 71045; 80053; 81001; 83605; 83880; 84484; 85025; 85610; 85730; 87040; 87081; 87086; 87804; 93005; 96361; 96374; 96375; 99285; J1644; J1885; J2405; J7030; Q0092